=== PATIENT | female | born 1960 | race African-American/Black ===

== ENCOUNTER 2016-08-02 06:44 | Emergency (ER) | payer MEDICAID ==
[~2016-08-02] VITALS: Ht 170.2 cm; Wt 70.0 kg
[~2016-08-02 06:44] MED LIST: ALPR2TAB2 PO; AMLO5TAB2 PO; AMLO5TAB4 PO; ARTHRITIS MEDS; CARI350T PO; CIPR500T87; COLESTEROL MED; DIAZ5TAB4 PO; DICY20TA29 PO; FENO145T32 PO; FENT1PAT76 TP; HYDR-3240; HYDR50CA2 PO; LIPA1CAP54 PO; LORA1TAB PO; MAGN400T26 PO; METR500T PO; OMEP20CA9 PO; ONDA4TAB7; OXYC-223 PO; OXYC-302 PO; OXYC1TAB7 PO; PANT40TA5 PO; POLY17PO5 PO; PREG50CA PO; SENN1TAB7 PO; SIMV20TA3 PO; TRAZ100T15 PO
[2016-08-02] MEDS ORDERED: ACET-1600 PO (07:15)
[2016-08-02] MEDS ORDERED: BACL20TA PO (07:15)
[2016-08-02] MEDS ORDERED: GABA300C10 PO (07:15)
[2016-08-02] MEDS ORDERED: HYDROmorphone 1 MG/ML, 1ML ONE (07:29)
[2016-08-02] MEDS ORDERED: ONDANSETRON ODT 4 MG ONE (07:29)
[2016-08-02] MEDS ORDERED: HYDROmorphone 1 MG/ML, 1ML IM ONE (07:30)
[2016-08-02] MEDS ORDERED: ONDANSETRON ODT 4 MG PO ONE (07:30)
[2016-08-02 07:37] VITALS: BP 121/71
[2016-08-02] MEDS ORDERED: HYDROcodone/APAP 5/325 TABLET ONE (09:29)
[2016-08-02] MEDS ORDERED: HYDROcodone/APAP 5/325 TABLET PO ONE (09:30)
== END 2016-08-02 09:57 | disposition home or self-care (01) ==
LOC: ED 07:21
DX: S70.02XA Contusion of left hip, initial encounter (principal); G43.909 Migraine, unspecified, not intractable, without status migrainosus; M06.9 Rheumatoid arthritis, unspecified; Z98.51 Tubal ligation status; Z88.6 Allergy status to analgesic agent; W18.2XXA Fall in (into) shower or empty bathtub, initial encounter; Y93.89 Activity, other specified; Y92.89 Other specified places as the place of occurrence of the external cause; Y99.8 Other external cause status
CPT/HCPCS: 72110; 73502; 93005; 96372; 99284; J1170; Q0162

== ENCOUNTER 2016-10-11 21:41 | Emergency (ER) | payer OTHER, MEDICAID ==
[~2016-10-11] VITALS: Ht 170.2 cm; Wt 67.0 kg
[~2016-10-11 21:41] MED LIST changes: +ACET-1600 PO; +BACL20TA PO; +GABA300C10 PO
[2016-10-11] MEDS ORDERED: ONDANSETRON 2MG/ML, 2ML ONE (22:29)
[2016-10-11] MEDS ORDERED: MORPHINE SULFATE 4 MG/ML, 1ML ONE (22:29)
[2016-10-11] MEDS ORDERED: LEVETIRACETAM 1,000 MG in SODIUM CHLORIDE 0.9% 100 ML IV ONE (22:30)
[2016-10-11] MEDS ORDERED: ONDANSETRON 2MG/ML, 2ML IVPush ONE (22:30)
[2016-10-11] MEDS ORDERED: SODIUM CHLORIDE 0.9% 1,000ML IVBOLUS ONE (22:30)
[2016-10-11] MEDS: MORPHINE SULFATE 4 MG/ML, 1ML IVPush PRN (23:23)
[2016-10-11 23:30] LABS: ASPARTATE AMINO TRANSFERASE 22 U/L (15-37); BLOOD UREA NITROGEN 17 mg/dL (7-18)
[2016-10-11 23:35] LABS: IS PT STATUS REG ER OR PRE ER? YES
[2016-10-12] MEDS ORDERED: ZIPRASIDONE 20 MG INJ IM ONE ×2 (00:26→00:30)
[2016-10-12] MEDS ORDERED: MORPHINE SULFATE 4 MG/ML, 1ML ONE (00:38)
[2016-10-12] MEDS: MORPHINE SULFATE 4 MG/ML, 1ML IVPush PRN (00:41)
[2016-10-12 00:42] VITALS: BP 156/107
== END 2016-10-12 01:04 | disposition home or self-care (01) ==
LOC: ED 22:24
DX: S06.0X0A Concussion without loss of consciousness, initial encounter (principal); G40.909 Epilepsy, unspecified, not intractable, without status epilepticus; I10 Essential (primary) hypertension; M19.90 Unspecified osteoarthritis, unspecified site; M41.9 Scoliosis, unspecified; F17.200 Nicotine dependence, unspecified, uncomplicated; F19.10 Other psychoactive substance abuse, uncomplicated; Z88.6 Allergy status to analgesic agent; Z88.8 Allergy status to other drugs, medicaments and biological substances; W19.XXXA Unspecified fall, initial encounter; Y93.89 Activity, other specified; Y99.8 Other external cause status; Y92.149 Unspecified place in prison as the place of occurrence of the external cause; G43.909 Migraine, unspecified, not intractable, without status migrainosus
CPT/HCPCS: 36415; 70450; 71010; 80053; 84484; 85025; 93005; 96365; 96375; 96376; 99285; J1953; J2405; J7030

== ENCOUNTER 2016-11-28 13:02 | Emergency (ER) | payer MEDICAID, OTHER ==
[~2016-11-28] VITALS: Ht 170.2 cm; Wt 75.0 kg
[~2016-11-28 13:02] MED LIST changes: -OXYC-223 PO; +OXYC-306 PO
[2016-11-28] MEDS ORDERED: ONDANSETRON ODT 4 MG PO ONE (13:30)
[2016-11-28] MEDS ORDERED: PLEASE ENTER HEIGHT AND WEIGHT MC SCH (13:30)
[2016-11-28] MEDS ORDERED: HYDROmorphone 1 MG/ML, 1ML IM ONE (13:30)
[2016-11-28] MEDS ORDERED: ONDANSETRON ODT 4 MG ONE (13:35)
[2016-11-28] MEDS ORDERED: HYDROmorphone 2 MG/ML, 1ML ONE (13:35)
[2016-11-28] MEDS ORDERED: PROMETHAZINE 25 MG/ML, 1ML ONE (14:52)
[2016-11-28] MEDS ORDERED: PROMETHAZINE 25 MG/ML, 1ML IM ONE (15:00)
[2016-11-28 16:47] VITALS: BP 136/98
== END 2016-11-28 17:05 | disposition home or self-care (01) ==
LOC: ED 14:27
DX: R51 Headache (principal); G89.29 Other chronic pain; M06.9 Rheumatoid arthritis, unspecified; M79.1 Myalgia; K21.9 Gastro-esophageal reflux disease without esophagitis; M19.90 Unspecified osteoarthritis, unspecified site; F41.1 Generalized anxiety disorder; I10 Essential (primary) hypertension
CPT/HCPCS: 36415; 80047; 93005; 96372; 99285; J1170; J2550; Q0162

== ENCOUNTER 2016-11-29 12:53 | Emergency (ER) | payer MEDICAID ==
[~2016-11-29] VITALS: Ht 162.6 cm; Wt 60.0 kg
[2016-11-29 17:53] LABS: HEMOGLOBIN 11.3 g/dL (11.7-16.4); WHITE BLOOD COUNT 6.7 x10^3/uL (3.4-10)
[2016-11-29 18:02] LABS: BLOOD UREA NITROGEN 10 mg/dL (7-18)
[2016-11-29 18:03] LABS: ACETAMINOPHEN 4 mcg/mL (10-30)
[2016-11-29] MEDS ORDERED: LORazepam 2 MG/ML, 1ML ONE (18:15)
[2016-11-29] MEDS ORDERED: LORazepam 2 MG/ML, 1ML IM ONE (18:30)
[2016-11-29 21:17] VITALS: BP 116/85
== END 2016-11-29 21:23 | disposition home or self-care (01) ==
LOC: ED 13:27
DX: F41.1 Generalized anxiety disorder (principal); F10.129 Alcohol abuse with intoxication, unspecified; M79.7 Fibromyalgia; M41.9 Scoliosis, unspecified; M06.9 Rheumatoid arthritis, unspecified; Z88.6 Allergy status to analgesic agent; Z88.8 Allergy status to other drugs, medicaments and biological substances
CPT/HCPCS: 36415; 80048; 80307; 80329; 82040; 85025; 96372; 99284; J2060; G0479; G0480

== ENCOUNTER 2016-12-01 00:30 | Emergency (ER) | payer MEDICAID ==
[~2016-12-01] VITALS: Ht 165.1 cm; Wt 70.0 kg
[2016-12-01 00:38] VITALS: BP 149/53
[2016-12-01] MEDS ORDERED: DIPHENHYDRAMINE 50 MG CAPSULE ONE (00:56)
[2016-12-01] MEDS ORDERED: LORazepam 1MG TABLET ONE (00:56)
[2016-12-01] MEDS ORDERED: LORazepam 1MG TABLET PO ONE (01:00)
[2016-12-01] MEDS ORDERED: DIPHENHYDRAMINE 25 MG CAPSULE PO ONE (01:00)
== END 2016-12-01 01:43 | disposition home or self-care (01) ==
LOC: ED 01:12
DX: F41.9 Anxiety disorder, unspecified (principal); I10 Essential (primary) hypertension; Z90.5 Acquired absence of kidney; Z98.51 Tubal ligation status
CPT/HCPCS: 99284; Q0163

== ENCOUNTER 2016-12-09 14:29 | Inpatient (IN) | payer MEDICAID ==
[~2016-12-09] VITALS: Ht 170.2 cm; Wt 70.3 kg
[2016-12-09] MEDS ORDERED: SODIUM CHLORIDE 0.9% 1,000ML IVBOLUS ONE (15:00)
[2016-12-09 15:11] LABS: HEMATOCRIT 32.6 % (34.6-47.8); HEMOGLOBIN 10.6 g/dL (11.7-16.4); WHITE BLOOD COUNT 10.6 x10^3/uL (3.4-10)
[2016-12-09 15:25] LABS: BLOOD UREA NITROGEN 14 mg/dL (7-18)
[2016-12-09 15:31] LABS: ASPARTATE AMINO TRANSFERASE 28 U/L (15-37)
[2016-12-09] MEDS ORDERED: LORazepam 2 MG/ML, 1ML IVPush ONE (17:00)
[2016-12-09] MEDS ORDERED: LORazepam 2 MG/ML, 1ML ONE (17:01)
[2016-12-09 17:17] LABS: ACETAMINOPHEN < 2 mcg/mL (10-30)
[2016-12-09] MEDS ORDERED: DOCUSATE 100 MG CAPSULE PO PRN (17:30)
[2016-12-09] MEDS ORDERED: POLYETHYLENE GLYCOL 17 GM PACKET PO PRN (17:30)
[2016-12-09] MEDS ORDERED: ENALAPRILAT 1.25 MG/ML, 2ML IVPush PRN (17:30)
[2016-12-09] MEDS ORDERED: ONDANSETRON 2MG/ML, 2ML IVPush PRN (17:30)
[2016-12-09] MEDS: SODIUM CHLORIDE 0.9% 1,000 ML IV SCH (20:37)
[2016-12-09] MEDS: CEFTRIAXONE PMX 1GM/50ML 50 ML IV SCH ×2 (22:38→22:49)
[2016-12-09] MEDS: HEPARIN 5,000 UNITS/ML, 1ML SQ SCH (22:39)
[2016-12-09] MEDS: LORazepam 2 MG/ML, 1ML IVPush PRN (22:49)
[2016-12-09] MEDS: PLEASE ENTER WEIGHT MC SCH (22:49)
[2016-12-10] VITALS (7 sets, daily range): BP systolic 141–162; BP diastolic 97–128
[2016-12-10] MEDS: morphine SULFATE 10 MG/ML, 1ML IVPush PRN ×2 (00:33→03:12)
[2016-12-10] MEDS: hydrALAzine 20 MG/ML, 1ML IVPush PRN ×3 (01:56→13:33)
[2016-12-10] MEDS: PLEASE ENTER WEIGHT MC SCH (02:00)
[2016-12-10] MEDS: LORazepam 2 MG/ML, 1ML IVPush PRN ×5 (03:19→21:13)
[2016-12-10] MEDS: OXYcodone IR 5MG TABLET PO PRN ×4 (03:41→21:12)
[2016-12-10 05:30] LABS: HEMATOCRIT 35.5 % (34.6-47.8); HEMOGLOBIN 11.6 g/dL (11.7-16.4); WHITE BLOOD COUNT 10.7 x10^3/uL (3.4-10)
[2016-12-10 05:55] LABS: ASPARTATE AMINO TRANSFERASE 32 U/L (15-37); BLOOD UREA NITROGEN 12 mg/dL (7-18)
[2016-12-10] MEDS: SODIUM CHLORIDE 0.9% 1,000 ML IV SCH (07:46)
[2016-12-10] MEDS: SENNA/DOCUSATE TABLET PO SCH (07:47)
[2016-12-10] MEDS: GABAPENTIN 300 MG CAPSULE PO SCH (07:47)
[2016-12-10] MEDS: HEPARIN 5,000 UNITS/ML, 1ML SQ SCH ×2 (07:55→15:31)
[2016-12-10] MEDS: THIAMINE 100 MG, MVI ADULT 10 ML, FOLIC ACID 1 MG in D5%-0.9% NACL 1,000 ML IV SCH ×2 (11:35→23:19)
[2016-12-10] MEDS: LOSARTAN 50MG TABLET PO SCH (11:39)
[2016-12-10] MEDS: HALOPERIDOL 1 MG TABLET PO PRN (11:39)
[2016-12-10 12:00] LABS: DAU SCREEN DISCLAIMER
[2016-12-10 12:19] LABS: PATH.CAST-FLAG NOT PRESENT; SPERM-FLAG NOT PRESENT; SRC-FLAG NOT PRESENT; XTAL-FLAG NOT PRESENT; YLC-FLAG NOT PRESENT
[2016-12-10] MEDS: SIMVASTATIN 20 MG TABLET PO SCH (21:12)
[2016-12-10] MEDS: HALOPERIDOL 5 MG/ML IM PRN (21:15)
[2016-12-10] MEDS: CEFTRIAXONE PMX 1GM/50ML 50 ML IV SCH (23:23)
[2016-12-11] MEDS: HEPARIN 5,000 UNITS/ML, 1ML SQ SCH ×3 (01:00→16:49)
[2016-12-11 02:49] VITALS: BP 127/86
[2016-12-11] MEDS: OXYcodone IR 5MG TABLET PO PRN ×5 (04:42→22:01)
[2016-12-11] MEDS: LORazepam 2 MG/ML, 1ML IVPush PRN ×3 (04:43→14:50)
[2016-12-11] MEDS: HALOPERIDOL 5 MG/ML IM PRN ×2 (04:43→10:58)
[2016-12-11 05:10] LABS: BLOOD UREA NITROGEN 6 mg/dL (7-18)
[2016-12-11 06:40] VITALS: BP 128/87
[2016-12-11] MEDS: GABAPENTIN 300 MG CAPSULE PO SCH (09:55)
[2016-12-11] MEDS: SENNA/DOCUSATE TABLET PO SCH (09:55)
[2016-12-11] MEDS: LOSARTAN 50MG TABLET PO SCH (09:55)
[2016-12-11] MEDS ORDERED: LORazepam 2 MG/ML, 1ML IV PRN ×2 (12:00)
[2016-12-11] MEDS ORDERED: LORazepam 1MG TABLET PO PRN ×2 (12:00)
[2016-12-11] MEDS ORDERED: LORazepam 0.5MG TABLET PO PRN (12:00)
[2016-12-11] MEDS: MULTIVITAMIN 1 TABLET PO SCH (13:18)
[2016-12-11] MEDS: CHLORDIAZEPOXIDE 10 MG CAPSULE PO SCH ×3 (13:18→20:46)
[2016-12-11] MEDS: THIAMINE 100MG TABLET PO SCH (13:18)
[2016-12-11] MEDS: FOLIC ACID 1 MG TABLET PO SCH (13:18)
[2016-12-11] MEDS: OMEPRAZOLE 20 MG CAPSULE.DR PO SCH ×2 (13:18→20:46)
[2016-12-11 14:39] VITALS: BP 119/81
[2016-12-11] MEDS: LORazepam 2 MG/ML, 1ML IV PRN ×2 (18:28→22:19)
[2016-12-11 18:52] VITALS: BP 124/85
[2016-12-11] MEDS: SIMVASTATIN 20 MG TABLET PO SCH (20:46)
[2016-12-11] MEDS: CEFTRIAXONE PMX 1GM/50ML 50 ML IV SCH (23:16)
[2016-12-12] MEDS: HEPARIN 5,000 UNITS/ML, 1ML SQ SCH ×3 (01:29→15:38)
[2016-12-12 01:52] VITALS: BP 122/85
[2016-12-12] MEDS: LORazepam 2 MG/ML, 1ML IV PRN ×8 (02:29→22:21)
[2016-12-12] MEDS: HALOPERIDOL 5 MG/ML IM PRN ×4 (02:53→22:22)
[2016-12-12 05:18] LABS: HEMATOCRIT 31.5 % (34.6-47.8); HEMOGLOBIN 10.5 g/dL (11.7-16.4); WHITE BLOOD COUNT 6.8 x10^3/uL (3.4-10)
[2016-12-12 05:23] LABS: BLOOD UREA NITROGEN 8 mg/dL (7-18)
[2016-12-12 07:53] VITALS: BP 142/97
[2016-12-12] MEDS: LOSARTAN 50MG TABLET PO SCH (07:56)
[2016-12-12] MEDS: CHLORDIAZEPOXIDE 10 MG CAPSULE PO SCH ×3 (07:57→21:02)
[2016-12-12] MEDS: SENNA/DOCUSATE TABLET PO SCH (07:57)
[2016-12-12] MEDS: THIAMINE 100MG TABLET PO SCH (07:57)
[2016-12-12] MEDS: MULTIVITAMIN 1 TABLET PO SCH (07:57)
[2016-12-12] MEDS: OMEPRAZOLE 20 MG CAPSULE.DR PO SCH ×2 (07:57→21:02)
[2016-12-12] MEDS: GABAPENTIN 300 MG CAPSULE PO SCH (07:57)
[2016-12-12] MEDS: OXYcodone IR 5MG TABLET PO PRN ×3 (07:57→19:43)
[2016-12-12] MEDS: FOLIC ACID 1 MG TABLET PO SCH (07:59)
[2016-12-12 14:22] VITALS: BP 124/85
[2016-12-12] MEDS: NICOTINE 14MG/24 HR PATCH.TD24 TD SCH (15:35)
[2016-12-12 19:28] VITALS: BP 117/92
[2016-12-12] MEDS: SIMVASTATIN 20 MG TABLET PO SCH (21:02)
[2016-12-12] MEDS: CEFTRIAXONE PMX 1GM/50ML 50 ML IV SCH (23:37)
[2016-12-13] MEDS: HEPARIN 5,000 UNITS/ML, 1ML SQ SCH ×3 (02:27→16:54)
[2016-12-13 02:29] VITALS: BP 126/85
[2016-12-13] MEDS: OXYcodone IR 5MG TABLET PO PRN ×5 (02:34→21:15)
[2016-12-13 07:15] VITALS: BP 107/73
[2016-12-13] MEDS: LOSARTAN 50MG TABLET PO SCH (07:59)
[2016-12-13] MEDS: SENNA/DOCUSATE TABLET PO SCH (07:59)
[2016-12-13] MEDS: FOLIC ACID 1 MG TABLET PO SCH (07:59)
[2016-12-13] MEDS: THIAMINE 100MG TABLET PO SCH (07:59)
[2016-12-13] MEDS: GABAPENTIN 300 MG CAPSULE PO SCH (08:00)
[2016-12-13] MEDS: MULTIVITAMIN 1 TABLET PO SCH (08:00)
[2016-12-13] MEDS: CHLORDIAZEPOXIDE 10 MG CAPSULE PO SCH ×2 (08:00→14:54)
[2016-12-13] MEDS: OMEPRAZOLE 20 MG CAPSULE.DR PO SCH ×2 (08:00→20:05)
[2016-12-13] MEDS: LORazepam 1MG TABLET PO PRN ×3 (08:31→14:54)
[2016-12-13] MEDS: HALOPERIDOL 1 MG TABLET PO PRN ×2 (13:43→22:50)
[2016-12-13 14:05] VITALS: BP 114/74
[2016-12-13] MEDS: NICOTINE 14MG/24 HR PATCH.TD24 TD SCH (14:49)
[2016-12-13 18:34] VITALS: BP 106/75
[2016-12-13] MEDS: SIMVASTATIN 20 MG TABLET PO SCH (20:05)
[2016-12-14 00:08] VITALS: BP 119/80
[2016-12-14] MEDS: HEPARIN 5,000 UNITS/ML, 1ML SQ SCH ×3 (01:00→14:35)
[2016-12-14] MEDS: OXYcodone IR 5MG TABLET PO PRN ×3 (06:14→15:12)
[2016-12-14] MEDS: LORazepam 1MG TABLET PO PRN (06:19)
[2016-12-14] MEDS: HALOPERIDOL 1 MG TABLET PO PRN ×2 (08:44→17:17)
[2016-12-14] MEDS: SENNA/DOCUSATE TABLET PO SCH (08:44)
[2016-12-14] MEDS: GABAPENTIN 300 MG CAPSULE PO SCH (08:44)
[2016-12-14] MEDS: MULTIVITAMIN 1 TABLET PO SCH (08:44)
[2016-12-14] MEDS: LOSARTAN 50MG TABLET PO SCH (08:44)
[2016-12-14] MEDS: THIAMINE 100MG TABLET PO SCH (08:44)
[2016-12-14] MEDS: FOLIC ACID 1 MG TABLET PO SCH (08:44)
[2016-12-14 08:52] VITALS: BP 109/76
[2016-12-14] MEDS ORDERED: CHLORDIAZEPOXIDE 10 MG CAPSULE PO ONE (09:00)
[2016-12-14] MEDS: OMEPRAZOLE 20 MG CAPSULE.DR PO SCH (09:00)
[2016-12-14 11:51] VITALS: BP 108/75
[2016-12-14 13:35] VITALS: BP 115/91
[2016-12-14] MEDS: NICOTINE 14MG/24 HR PATCH.TD24 TD SCH (15:00)
[2016-12-14] MEDS ORDERED: MULT1TAB60 PO (15:57)
[2016-12-14] MEDS ORDERED: SIMV20TA3 PO (15:57)
[2016-12-14] MEDS ORDERED: LOSA50TA2 PO (15:57)
[2016-12-14] MEDS ORDERED: FOLI-17 PO (15:57)
[2016-12-14] MEDS ORDERED: OMEP-110 PO (15:57)
[2016-12-14] MEDS ORDERED: THIA100T6 PO (15:57)
== END 2016-12-14 17:20 | disposition home or self-care (01) | DRG 896 ==
LOC: ED 14:55 → EDIP 17:20 → 4NOR 20:28
PROVIDERS: ADMIT Internal Medicine; ATTEND Internal Medicine
DX: F10.239 Alcohol dependence with withdrawal, unspecified (principal); N17.0 Acute kidney failure with tubular necrosis; G93.41 Metabolic encephalopathy; E87.2 Acidosis; M41.9 Scoliosis, unspecified; K29.20 Alcoholic gastritis without bleeding; D64.9 Anemia, unspecified; E78.5 Hyperlipidemia, unspecified; E86.0 Dehydration; F41.9 Anxiety disorder, unspecified; G89.29 Other chronic pain; I10 Essential (primary) hypertension; K57.30 Diverticulosis of large intestine without perforation or abscess without bleeding; M06.9 Rheumatoid arthritis, unspecified; M79.7 Fibromyalgia; N32.89 Other specified disorders of bladder; Z90.5 Acquired absence of kidney; Z91.14 Patient's other noncompliance with medication regimen; Z91.19 Patient's noncompliance with other medical treatment and regimen
CPT/HCPCS: 36415; 74176; 80048; 80053; 80061; 80307; 80329; 81001; 82140; 83036; 83690; 83735; 84439; 84443; 84703; 85025; 87040; 87086; 93005; 96361; 96374; J0696; J1644; J3411; J7042; G0479; G0480; J0360; J1630; J2060; J2270; J7030

== ENCOUNTER 2016-12-17 02:10 | Emergency (ER) | payer MEDICAID ==
[~2016-12-17] VITALS: Ht 167.6 cm; Wt 72.0 kg
[~2016-12-17 02:10] MED LIST changes: +FOLI-17 PO; +LOSA50TA2 PO; +MULT1TAB60 PO; +OMEP-110 PO; +THIA100T6 PO
[2016-12-17 03:01] LABS: ASPARTATE AMINO TRANSFERASE 43 U/L (15-37); BLOOD UREA NITROGEN 16 mg/dL (7-18)
[2016-12-17 03:06] LABS: HEMATOCRIT 39.9 % (34.6-47.8); HEMOGLOBIN 13.1 g/dL (11.7-16.4); WHITE BLOOD COUNT 5.7 x10^3/uL (3.4-10)
[2016-12-17] MEDS ORDERED: ACETAMINOPHEN 325 MG TABLET ONE (04:16)
[2016-12-17] MEDS ORDERED: ONDANSETRON ODT 4 MG ONE (04:16)
[2016-12-17 04:59] VITALS: BP 164/77
== END 2016-12-17 05:02 | disposition home or self-care (01) ==
LOC: ED 02:36
DX: R10.84 Generalized abdominal pain (principal); F10.129 Alcohol abuse with intoxication, unspecified; F17.210 Nicotine dependence, cigarettes, uncomplicated; I10 Essential (primary) hypertension; G43.909 Migraine, unspecified, not intractable, without status migrainosus; I70.0 Atherosclerosis of aorta; M79.7 Fibromyalgia
CPT/HCPCS: 36415; 71010; 80053; 80307; 82140; 83690; 85025; 85610; 99285; G0479

== ENCOUNTER 2017-01-07 17:47 | Emergency (ER) | payer MEDICAID ==
[~2017-01-07] VITALS: Ht 167.6 cm; Wt 71.6 kg
[2017-01-07 18:08] VITALS: BP 133/95
[2017-01-07] MEDS ORDERED: FENTANYL PF 100 MCG/2ML IV ONE (19:00)
[2017-01-07] MEDS ORDERED: FENTANYL PF 100 MCG/2ML ONE (19:48)
[2017-01-07] MEDS ORDERED: LORazepam 2 MG/ML, 1ML ONE (20:19)
[2017-01-07] MEDS ORDERED: LORazepam 2 MG/ML, 1ML IVPush ONE (20:30)
== END 2017-01-07 21:24 | disposition left against medical advice (07) ==
LOC: ED 18:32
DX: S33.5XXA Sprain of ligaments of lumbar spine, initial encounter (principal); S00.93XA Contusion of unspecified part of head, initial encounter; I10 Essential (primary) hypertension; M06.9 Rheumatoid arthritis, unspecified; Y04.2XXA Assault by strike against or bumped into by another person, initial encounter
CPT/HCPCS: 96374; 99284; J3010

== ENCOUNTER 2018-03-25 20:44 | Emergency (ER) | payer MEDICAID ==
[~2018-03-25] VITALS: Ht 170.2 cm; Wt 90.0 kg
[~2018-03-25 20:44] MED LIST changes: +AMLO-150 PO; -AMLO5TAB2 PO; -SENN1TAB7 PO; +SENN1TAB8 PO; -THIA100T6 PO; +THIA100T67 PO; +TRAZ-137 PO; -TRAZ100T15 PO
[2018-03-25] MEDS ORDERED: METOCLOPRAMIDE 5 MG/ML, 2ML IVPush ONE (21:00)
[2018-03-25] MEDS ORDERED: DIPHENHYDRAMINE 50 MG/ML, 1ML IVPush ONE (21:00)
[2018-03-25] MEDS ORDERED: SODIUM CHLORIDE FLUSH 10ML SYR IVF ONE (21:00)
--- NOTE | 2018-03-25 22:08 | NUR ---
MULTIPLE IV ATTEMPTS HAVE FAILED. PT VITALS REMAIN STABLE. ANOTHER RN ATTEMPTING IV PLACEMENT AT THIS TIME. SO FAR 4 ATTEMPTS HAVE FAILED. PT REFUSED BENADRYL. STATED SHE TAKES 4 BENADRYL A DAY, SO IT WILL NOT HELP HER. ERP AWARE. WHEN IV ESTABLISHED, WILL MEDICATE WITH REMAINING MEDS.
--- NOTE | 2018-03-25 22:26 | NUR ---
GLORIA RN: MEDICATED PATIENT. NO ACUTE DISTRESS NOTED. VS STABLE. CALL LIGHT IN PLACE.
--- NOTE | 2018-03-25 22:51 | NUR ---
PT REQUESTING DILAUDID FOR HER MARIO, BACK PAIN AND MOUTH NUMBNESS. PT TOLD ANOTHER RN, "I'M NOT LEAVING HERE WITHOUT GETTING DILAUDID". PT HAS REFUSED ALL OTHER OFFERED MEDS. PT STATES SEVERE ADVERSE REACTION TO ALL OTHER MEDS OFFERED FOR HER PAIN BY ERP. PT UPSET WITH THIS RN, STATING, "I CAN'T BELIEVE YOU TREAT BLACK PEOPLE LIKE THIS". PT RESTING IN [facility] AT THIS TIME. WILL CONTINUE TO MONITOR.
[2018-03-25 23:41] VITALS: BP 116/84
--- NOTE | 2018-03-25 23:49 | NUR ---
PT EXTREMLY DROWSY AT THIS TIME. PT VSS. WILL CONTINUE TO MONITOR. RESTING IN GURNEY, BILAT BEDRAILS UP.
== END 2018-03-26 00:09 | disposition home or self-care (01) ==
LOC: ED 22:20
DX: G43.009 Migraine without aura, not intractable, without status migrainosus (principal)
CPT/HCPCS: 96374; 96375; 99283; J1200; J2765

== ENCOUNTER 2018-11-09 12:44 | Inpatient (IN) | payer MEDICAID ==
[~2018-11-09] VITALS: Ht 170.2 cm; Wt 77.4 kg
[~2018-11-09 12:44] MED LIST changes: +SENN-177 PO; -SENN1TAB8 PO
[2018-11-09] MEDS ORDERED: BISACODYL 10 MG SUPP PR PRN (13:00)
[2018-11-09] MEDS ORDERED: DOCUSATE 100 MG CAPSULE PO PRN (13:00)
[2018-11-09] MEDS ORDERED: POLYETHYLENE GLYCOL 17 GM PACKET PO PRN (13:00)
[2018-11-09] MEDS ORDERED: ONDANSETRON ODT 4 MG PO PRN (13:00)
[2018-11-09] MEDS ORDERED: PLEASE ENTER HEIGHT AND WEIGHT MC SCH (16:00)
[2018-11-09 17:16] VITALS: BP 110/76
[2018-11-09] MEDS ORDERED: NICOTINE 14MG/24 HR PATCH.TD24 ONE (17:47)
[2018-11-09] MEDS: NICOTINE 14MG/24 HR PATCH.TD24 TD SCH (17:54)
[2018-11-09 18:42] LABS: BASOPHILS # (AUTO) 0.06 x10^3/uL (0-0.1); BASOPHILS % (AUTO) 1 % (0-1); EOSINOPHILS # (AUTO) 0.09 x10^3/uL (0-0.4); EOSINOPHILS % (AUTO) 1 % (1-7); LYMPHOCYTES # (AUTO) 2.62 x10^3/uL (1-3.4); LYMPHOCYTES % (AUTO) 42 % (22-44); MD NO; MEAN CORPUSCULAR HEMOGLOBIN 30.5 pg (27.0-34.8); MEAN CORPUSCULAR HGB CONC 33.4 g/dL (32.4-35.8); MEAN CORPUSCULAR VOLUME 91.3 fL (80-100); MEAN PLATELET VOLUME 9.1 fL (7.4-10.4); MONOCYTES # (AUTO) 0.12 x10^3/uL (0.2-0.8); MONOCYTES % (AUTO) 2 % (2-9); NEUTROPHILS # (AUTO) 3.42 x10^3/uL (1.8-6.8); NEUTROPHILS % (AUTO) 54 % (42-75); PLATELET COUNT 273 x10^3/uL (130-400); RED BLOOD COUNT 4.27 x10^6/uL (3.82-5.3); RED CELL DISTRIBUTION WIDTH 15.9 % (9.6-15.2)
[2018-11-09 18:50] LABS: ALBUMIN 3.7 g/dL (3.4-5.0); ANION GAP 9 mmol/L (5-15); CALCIUM 8.8 mg/dL (8.5-10.1); CHLORIDE 112 mmol/L (98-107)
[2018-11-09 19:15] LABS: ALANINE AMINOTRANSFERASE 47 U/L (12-78); ALKALINE PHOSPHATASE 116 U/L (45-117); BILIRUBIN,TOTAL 0.5 mg/dL (0.2-1.0); CHOL/HDL RATIO 5.4; CHOLESTEROL, TOTAL 209 mg/dL (140-239); FREE T4 (FREE THYROXINE) 0.87 ng/dL (0.76-1.46); HDL CHOL % 19 % (28-40); HDL CHOLESTEROL (DIRECT) 39 mg/dL (40-60); TOTAL PROTEIN 7.6 g/dL (6.4-8.2); TRIGLYCERIDES 477 mg/dL (50-200)
[2018-11-09 20:00] VITALS: BP 113/80
[2018-11-09] MEDS: OMEPRAZOLE 20 MG CAPSULE.DR PO SCH (20:13)
[2018-11-09] MEDS: ACETAMINOPHEN 325 MG TABLET PO PRN (20:14)
[2018-11-09] MEDS: SIMVASTATIN 20 MG TABLET PO SCH (20:14)
[2018-11-09] MEDS: ZOLPIDEM 5MG TABLET PO PRN (20:14)
[2018-11-09 21:01] LABS: MICROSCOPIC AUTO
[2018-11-09 21:09] LABS: AMPHETAMINE SCREEN, URINE Negative (Negative); BARBITURATE SCREEN, URINE Negative (Negative); BENZODIAZEPINE SCREEN, URINE Positive (Negative); CANNABINOID SCREEN, URINE Negative (Negative); COCAINE SCREEN, URINE Negative (Negative); CULTURE INDICATED? NO; METHADONE SCREEN, URINE Negative (Negative); OPIATE SCREEN, URINE Negative (Negative)
[2018-11-10] MEDS: ACETAMINOPHEN 325 MG TABLET PO PRN (05:49)
[2018-11-10] MEDS: DIPHENHYDRAMINE 25 MG CAPSULE PO PRN ×2 (06:33→17:06)
[2018-11-10 07:42] VITALS: BP 123/85
[2018-11-10] MEDS: GABAPENTIN 300 MG CAPSULE PO SCH (08:19)
[2018-11-10] MEDS: OMEPRAZOLE 20 MG CAPSULE.DR PO SCH ×2 (08:19→20:07)
[2018-11-10] MEDS: FOLIC ACID 1 MG TABLET PO SCH (08:20)
[2018-11-10] MEDS: LOSARTAN 50MG TABLET PO SCH (08:20)
[2018-11-10] MEDS: THIAMINE 100MG TABLET PO SCH (08:20)
[2018-11-10] MEDS ORDERED: BACLOFEN 10 MG TABLET PO SCH (09:00)
[2018-11-10] MEDS ORDERED: HALOPERIDOL 5 MG TABLET ONE (09:51)
[2018-11-10] MEDS: HALOPERIDOL 5 MG TABLET PO PRN ×2 (09:54→17:06)
[2018-11-10] MEDS: PREGABALIN 75 MG CAPSULE PO PRN (14:54)
[2018-11-10] MEDS: NICOTINE 14MG/24 HR PATCH.TD24 TD SCH (17:07)
[2018-11-10 19:47] VITALS: BP 132/96
[2018-11-10] MEDS: SIMVASTATIN 20 MG TABLET PO SCH (20:07)
[2018-11-10] MEDS: ZOLPIDEM 5MG TABLET PO PRN (20:08)
[2018-11-11] MEDS: HALOPERIDOL 5 MG TABLET PO PRN ×3 (01:37→16:20)
[2018-11-11] MEDS: DIPHENHYDRAMINE 25 MG CAPSULE PO PRN (01:41)
[2018-11-11] MEDS: ACETAMINOPHEN 325 MG TABLET PO PRN ×3 (01:41→16:19)
[2018-11-11 08:21] VITALS: BP 114/83
[2018-11-11] MEDS: LOSARTAN 50MG TABLET PO SCH (09:12)
[2018-11-11] MEDS: THIAMINE 100MG TABLET PO SCH (09:12)
[2018-11-11] MEDS: GABAPENTIN 300 MG CAPSULE PO SCH (09:12)
[2018-11-11] MEDS: OMEPRAZOLE 20 MG CAPSULE.DR PO SCH ×2 (09:12→22:42)
[2018-11-11] MEDS: FOLIC ACID 1 MG TABLET PO SCH (09:12)
[2018-11-11] MEDS: PREGABALIN 75 MG CAPSULE PO PRN ×2 (10:25→22:42)
[2018-11-11] MEDS: QUETIAPINE 100MG TABLET PO SCH ×3 (16:20→22:42)
[2018-11-11] MEDS: NICOTINE 14MG/24 HR PATCH.TD24 TD SCH (18:53)
[2018-11-11] MEDS: ZOLPIDEM 5MG TABLET PO PRN (22:42)
[2018-11-11] MEDS: SIMVASTATIN 20 MG TABLET PO SCH (22:43)
[2018-11-12] MEDS: HALOPERIDOL 5 MG TABLET PO PRN ×3 (01:17→15:36)
[2018-11-12 07:55] VITALS: BP 110/85
[2018-11-12] MEDS: PREGABALIN 75 MG CAPSULE PO PRN (08:24)
[2018-11-12] MEDS: QUETIAPINE 100MG TABLET PO SCH ×3 (08:25→20:38)
[2018-11-12] MEDS: LOSARTAN 50MG TABLET PO SCH (08:25)
[2018-11-12] MEDS: FOLIC ACID 1 MG TABLET PO SCH (08:25)
[2018-11-12] MEDS: OMEPRAZOLE 20 MG CAPSULE.DR PO SCH ×2 (08:25→20:38)
[2018-11-12] MEDS: ACETAMINOPHEN 325 MG TABLET PO PRN ×3 (08:25→20:37)
[2018-11-12] MEDS: GABAPENTIN 300 MG CAPSULE PO SCH (08:25)
[2018-11-12] MEDS: THIAMINE 100MG TABLET PO SCH (08:25)
[2018-11-12] MEDS: NICOTINE 14MG/24 HR PATCH.TD24 TD SCH (17:25)
[2018-11-12] MEDS: DIPHENHYDRAMINE 50 MG CAPSULE PO PRN (17:25)
[2018-11-12] MEDS: MELOXICAM 15 MG TABLET PO PRN (17:25)
[2018-11-12 19:30] VITALS: BP 87/64
[2018-11-12] MEDS: ZOLPIDEM 5MG TABLET PO PRN (20:37)
[2018-11-12] MEDS: SIMVASTATIN 20 MG TABLET PO SCH (20:38)
[2018-11-13] MEDS: PREGABALIN 75 MG CAPSULE PO PRN ×2 (04:46→12:19)
[2018-11-13] MEDS: ACETAMINOPHEN 325 MG TABLET PO PRN (04:46)
[2018-11-13] MEDS: HALOPERIDOL 5 MG TABLET PO PRN ×3 (04:46→20:08)
[2018-11-13 07:34] VITALS: BP 112/83
[2018-11-13] MEDS: OMEPRAZOLE 20 MG CAPSULE.DR PO SCH ×2 (08:56→20:08)
[2018-11-13] MEDS: THIAMINE 100MG TABLET PO SCH (08:56)
[2018-11-13] MEDS: DIPHENHYDRAMINE 50 MG CAPSULE PO PRN (08:56)
[2018-11-13] MEDS: QUETIAPINE 100MG TABLET PO SCH ×3 (08:56→20:08)
[2018-11-13] MEDS: LOSARTAN 50MG TABLET PO SCH (08:56)
[2018-11-13] MEDS: GABAPENTIN 300 MG CAPSULE PO SCH (08:56)
[2018-11-13] MEDS: FOLIC ACID 1 MG TABLET PO SCH (08:56)
[2018-11-13] MEDS: MELOXICAM 15 MG TABLET PO PRN (12:19)
[2018-11-13] MEDS ORDERED: METHOCARBAMOL 750 MG TABLET ONE (17:01)
[2018-11-13] MEDS: METHOCARBAMOL 750 MG TABLET PO SCH ×2 (17:26→20:08)
[2018-11-13] MEDS: NICOTINE 14MG/24 HR PATCH.TD24 TD SCH (17:28)
[2018-11-13 19:40] VITALS: BP 118/83
[2018-11-13] MEDS: ZOLPIDEM 5MG TABLET PO PRN (20:08)
[2018-11-13] MEDS: SIMVASTATIN 20 MG TABLET PO SCH (20:08)
[2018-11-14] MEDS: HALOPERIDOL 5 MG TABLET PO PRN ×3 (02:06→15:33)
[2018-11-14] MEDS: PREGABALIN 75 MG CAPSULE PO PRN ×3 (02:19→15:33)
[2018-11-14] MEDS: ACETAMINOPHEN 325 MG TABLET PO PRN ×3 (02:19→15:33)
[2018-11-14] MEDS: DIPHENHYDRAMINE 50 MG CAPSULE PO PRN ×2 (02:19→18:00)
[2018-11-14 07:24] VITALS: BP 85/55
[2018-11-14 08:50] VITALS: BP 108/72
[2018-11-14] MEDS: LOSARTAN 50MG TABLET PO SCH (08:51)
[2018-11-14] MEDS: THIAMINE 100MG TABLET PO SCH (08:51)
[2018-11-14] MEDS: OMEPRAZOLE 20 MG CAPSULE.DR PO SCH ×2 (08:51→20:06)
[2018-11-14] MEDS: FOLIC ACID 1 MG TABLET PO SCH (08:51)
[2018-11-14] MEDS: GABAPENTIN 300 MG CAPSULE PO SCH (08:51)
[2018-11-14] MEDS: METHOCARBAMOL 750 MG TABLET PO SCH ×3 (08:52→20:06)
[2018-11-14] MEDS: QUETIAPINE 100MG TABLET PO SCH ×3 (08:52→20:06)
[2018-11-14] MEDS: NICOTINE 14MG/24 HR PATCH.TD24 TD SCH (18:00)
[2018-11-14 19:46] VITALS: BP 112/80
[2018-11-14] MEDS: SIMVASTATIN 20 MG TABLET PO SCH (20:07)
[2018-11-14] MEDS: ZOLPIDEM 5MG TABLET PO PRN (20:13)
[2018-11-15] MEDS: HALOPERIDOL 5 MG TABLET PO PRN (06:06)
[2018-11-15] MEDS: PREGABALIN 75 MG CAPSULE PO PRN ×2 (06:06→18:19)
[2018-11-15 07:20] VITALS: BP 107/79
[2018-11-15] MEDS: METHOCARBAMOL 750 MG TABLET PO SCH ×3 (09:09→20:12)
[2018-11-15] MEDS: FOLIC ACID 1 MG TABLET PO SCH (09:09)
[2018-11-15] MEDS: OMEPRAZOLE 20 MG CAPSULE.DR PO SCH ×2 (09:09→20:12)
[2018-11-15] MEDS: GABAPENTIN 300 MG CAPSULE PO SCH (09:09)
[2018-11-15] MEDS: LOSARTAN 50MG TABLET PO SCH (09:09)
[2018-11-15] MEDS: THIAMINE 100MG TABLET PO SCH (09:10)
[2018-11-15] MEDS: QUETIAPINE 100MG TABLET PO SCH ×2 (09:10→20:13)
[2018-11-15] MEDS: MELOXICAM 15 MG TABLET PO PRN ×2 (12:18→18:20)
[2018-11-15] MEDS: ACETAMINOPHEN 325 MG TABLET PO PRN (12:18)
[2018-11-15] MEDS ORDERED: ALUMINUM/MAG/SIMETHICONE 30 ML UDC PO ONE (16:30)
[2018-11-15] MEDS: NICOTINE 14MG/24 HR PATCH.TD24 TD SCH (18:10)
[2018-11-15] MEDS: DIPHENHYDRAMINE 50 MG CAPSULE PO PRN (18:23)
[2018-11-15 19:30] VITALS: BP 135/84
[2018-11-15] MEDS: ZOLPIDEM 5MG TABLET PO PRN (20:12)
[2018-11-15] MEDS: SIMVASTATIN 20 MG TABLET PO SCH (20:13)
[2018-11-16] MEDS: ACETAMINOPHEN 325 MG TABLET PO PRN ×3 (06:22→18:15)
[2018-11-16] MEDS: PREGABALIN 75 MG CAPSULE PO PRN ×3 (06:22→20:08)
[2018-11-16] MEDS: HALOPERIDOL 5 MG TABLET PO PRN ×3 (06:22→21:56)
[2018-11-16] MEDS: DIPHENHYDRAMINE 50 MG CAPSULE PO PRN ×2 (06:27→18:15)
[2018-11-16 07:30] VITALS: BP 109/78
[2018-11-16] MEDS: FOLIC ACID 1 MG TABLET PO SCH (09:38)
[2018-11-16] MEDS: GABAPENTIN 300 MG CAPSULE PO SCH (09:38)
[2018-11-16] MEDS: LOSARTAN 50MG TABLET PO SCH (09:38)
[2018-11-16] MEDS: THIAMINE 100MG TABLET PO SCH (09:38)
[2018-11-16] MEDS: OMEPRAZOLE 20 MG CAPSULE.DR PO SCH ×2 (09:38→20:08)
[2018-11-16] MEDS: ARIPIPRAZOLE 5 MG TABLET PO SCH (09:38)
[2018-11-16] MEDS: METHOCARBAMOL 750 MG TABLET PO SCH ×3 (09:38→20:08)
[2018-11-16] MEDS ORDERED: LOSA50TA2 PO (10:26)
[2018-11-16] MEDS ORDERED: GABA300C10 PO (10:26)
[2018-11-16] MEDS ORDERED: QUET100T PO (10:26)
[2018-11-16] MEDS ORDERED: SIMV20TA3 PO (10:26)
[2018-11-16] MEDS ORDERED: NICO-486 TD (10:26)
[2018-11-16] MEDS ORDERED: FOLI-17 PO (10:26)
[2018-11-16] MEDS ORDERED: ARIP5TAB13 PO (10:26)
[2018-11-16] MEDS ORDERED: DIPH50CA PO (10:26)
[2018-11-16] MEDS: MELOXICAM 15 MG TABLET PO PRN (12:47)
[2018-11-16] MEDS: NICOTINE 14MG/24 HR PATCH.TD24 TD SCH (18:15)
[2018-11-16 19:31] VITALS: BP 122/88
[2018-11-16] MEDS: ZOLPIDEM 5MG TABLET PO PRN (20:08)
[2018-11-16] MEDS: SIMVASTATIN 20 MG TABLET PO SCH (20:08)
[2018-11-16] MEDS: QUETIAPINE 100MG TABLET PO SCH (20:08)
[2018-11-17] MEDS: DIPHENHYDRAMINE 50 MG CAPSULE PO PRN (05:58)
[2018-11-17] MEDS: MELOXICAM 15 MG TABLET PO PRN (05:58)
[2018-11-17] MEDS: HALOPERIDOL 5 MG TABLET PO PRN ×2 (05:58→13:00)
[2018-11-17] MEDS: PREGABALIN 75 MG CAPSULE PO PRN (07:37)
[2018-11-17 07:46] VITALS: BP 97/68
[2018-11-17] MEDS: ARIPIPRAZOLE 5 MG TABLET PO SCH (08:43)
[2018-11-17] MEDS: LOSARTAN 50MG TABLET PO SCH (08:44)
[2018-11-17] MEDS: FOLIC ACID 1 MG TABLET PO SCH (08:44)
[2018-11-17] MEDS: GABAPENTIN 300 MG CAPSULE PO SCH (08:44)
[2018-11-17] MEDS: OMEPRAZOLE 20 MG CAPSULE.DR PO SCH (08:45)
[2018-11-17] MEDS: ACETAMINOPHEN 325 MG TABLET PO PRN (08:45)
[2018-11-17] MEDS: METHOCARBAMOL 750 MG TABLET PO SCH (08:45)
[2018-11-17] MEDS: THIAMINE 100MG TABLET PO SCH (08:45)
[2018-12-19] MEDS ORDERED: ZOLP-413 PO (20:13)
[2018-12-24] MEDS ORDERED: GABA300C10 PO (17:05)
[2018-12-24] MEDS ORDERED: TOPI25TA32 PO (17:05)
[2018-12-24] MEDS ORDERED: NICO-486 TD (17:05)
[2018-12-24] MEDS ORDERED: QUET200T PO (17:05)
[2018-12-24] MEDS ORDERED: SIMV20TA3 PO (17:05)
[2018-12-24] MEDS ORDERED: OMEP10CA5 PO (17:05)
[2018-12-24] MEDS ORDERED: ARIP5TAB13 PO (17:05)
[2018-12-24] MEDS ORDERED: MULT1TAB60 PO (17:05)
== END 2018-11-17 14:57 | disposition home or self-care (01) | DRG 750 ==
LOC: 3E 15:45
PROVIDERS: ADMIT Psychiatry & Neurology Psychosomatic Medicine; ATTEND Psychiatry & Neurology Psychosomatic Medicine
DX: F20.0 Paranoid schizophrenia (principal); F33.1 Major depressive disorder, recurrent, moderate; E78.5 Hyperlipidemia, unspecified; F17.200 Nicotine dependence, unspecified, uncomplicated; G89.29 Other chronic pain; I10 Essential (primary) hypertension; K21.9 Gastro-esophageal reflux disease without esophagitis; Z88.6 Allergy status to analgesic agent; Z79.899 Other long term (current) drug therapy; Z88.0 Allergy status to penicillin; Z82.0 Family history of epilepsy and other diseases of the nervous system; Z88.8 Allergy status to other drugs, medicaments and biological substances; Z82.3 Family history of stroke; Z81.1 Family history of alcohol abuse and dependence; Z80.8 Family history of malignant neoplasm of other organs or systems
CPT/HCPCS: 36415; 71045; 80053; 80061; 80307; 81001; 82140; 82607; 84439; 84443; 85025; 86592; 93005; 92522-GN; Q0163

== ENCOUNTER 2019-01-01 12:27 | Emergency (ER) | payer MEDICAID ==
[~2019-01-01] VITALS: Ht 170.2 cm; Wt 75.9 kg
[~2019-01-01 12:27] MED LIST changes: +ARIP5TAB13 PO; +DIPH50CA PO; +NICO-486 TD; +OMEP10CA5 PO; +QUET100T PO; +QUET200T PO; +TOPI25TA32 PO; +ZOLP-413 PO
[2019-01-01 12:33] VITALS: BP 113/82
--- NOTE | 2019-01-01 12:33 | NUR ---
PT BIB [facility] FOR SI- STATES THE VOICES IN HER HEAD ARE TELLING HER TO KILL HERSELF. CHANGED INTO GOWN. BELONGINGS PLACED INTO BAG AND INTO SECURE LOCKER. SITTER IN HALLWAY. ROOM SECURE.
--- NOTE | 2019-01-01 12:50 | NUR ---
PSYCH WIND TURBINE SHEET METAL WORKER AND LAB AT BEDSIDE NOW.
[2019-01-01 13:12] LABS: AMPHETAMINE SCREEN, URINE Negative (Negative); BARBITURATE SCREEN, URINE Negative (Negative); BENZODIAZEPINE SCREEN, URINE Negative (Negative); CANNABINOID SCREEN, URINE Negative (Negative); COCAINE SCREEN, URINE Negative (Negative); METHADONE SCREEN, URINE Negative (Negative); OPIATE SCREEN, URINE Negative (Negative)
[2019-01-01 13:14] LABS: MEAN CORPUSCULAR HEMOGLOBIN 29.5 pg (27.0-34.8); MEAN CORPUSCULAR HGB CONC 33.1 g/dL (32.4-35.8); MEAN CORPUSCULAR VOLUME 89.3 fL (80-100); MEAN PLATELET VOLUME 8.8 fL (7.4-10.4); PLATELET COUNT 284 x10^3/uL (130-400); RED BLOOD COUNT 4.23 x10^6/uL (3.82-5.3); RED CELL DISTRIBUTION WIDTH 16.1 % (9.6-15.2)
[2019-01-01 13:24] LABS: ALBUMIN 3.8 g/dL (3.4-5.0); ANION GAP 12 mmol/L (5-15); CALCIUM 8.9 mg/dL (8.5-10.1); CHLORIDE 109 mmol/L (98-107); CREATININE 0.85 mg/dL (0.55-1.02); SALICYLATE LEVEL 3.8 mg/dL (2.8-20.0)
--- NOTE | 2019-01-01 13:28 | NUR ---
PT PROVIDED WITH WATER.
[2019-01-01] MEDS ORDERED: QUETIAPINE 25MG TABLET PO SCH (13:30)
--- NOTE | 2019-01-01 13:33 | NUR ---
REPORT TO SIDNEY BLAKE.
--- NOTE | 2019-01-01 13:36 | NUR ---
REPORT RECEIVED FROM LATOYA LITTLE.
[2019-01-01] MEDS ORDERED: QUETIAPINE 25MG TABLET ONE (14:08)
[2019-01-01] MEDS ORDERED: GABAPENTIN 300 MG CAPSULE ONE (14:08)
--- NOTE | 2019-01-01 14:13 | NUR ---
PT MEDICATED PER EMAR. PT TOLERATED WELL.
--- NOTE | 2019-01-01 14:17 | NUR ---
SOME SNACKS PROVIDED AT THIS TIME.
--- NOTE | 2019-01-01 14:25 | NUR ---
HOLD DC PER MARINE ENGINE MACHINIST.
[2019-01-01 14:30] LABS: MD YES
[2019-01-01 14:34] LABS: <RBC MORPHOLOGY> NORMAL; BAND#(MANUAL) 0.26 x10^3/uL; BANDS%(MANUAL) 3 % (0-7); LYMPHS% (MANUAL) 33 % (22-44); MONOS#(MANUAL) 0.26 x10^3/uL (0.3-2.7); MONOS% (MANUAL) 3 % (2-9); SEG#(MANUAL) 5.37 x10^3/uL (1.8-6.8); SEGS% (MANUAL) 61 % (42-75)
[2019-01-01 14:35] LABS: <PLATELET ESTIMATE> ADEQUATE; <PLT MORPHOLOGY> NORMAL PLT MORPH
--- NOTE | 2019-01-01 14:52 | NUR ---
FAGOTING MACHINE OPERATOR OK'D TO DC THIS PT. Patient given discharge instructions and they have confirmed that they understand the instructions.
[2019-01-01] MEDS ORDERED: GABAPENTIN 300 MG CAPSULE PO SCH (16:00)
== END 2019-01-01 14:54 | disposition home or self-care (01) ==
LOC: ED 14:48
DX: F20.89 Other schizophrenia (principal); R44.0 Auditory hallucinations; I10 Essential (primary) hypertension
CPT/HCPCS: 36415; 80048; 80307; 82040; 85025; 99284

== ENCOUNTER 2019-03-23 00:05 | Emergency (ER) | payer MEDICAID ==
[~2019-03-23] VITALS: Ht 167.6 cm; Wt 93.3 kg
[~2019-03-23 00:05] MED LIST changes: +ACET325T26 PO; +ALPR1TAB2 PO; +BACL-19 PO; +DIPH25CA61 PO; +OLAN15TA3 PO; +ONDA4TAB7 PO; +ZOLP10TA PO
[2019-03-23] MEDS ORDERED: HYDROmorphone 1 MG/ML, 1ML INJ IM ONE (01:00)
[2019-03-23] MEDS ORDERED: ONDANSETRON ODT 4 MG PO ONE (01:00)
[2019-03-23] MEDS ORDERED: ONDANSETRON ODT 4 MG ONE (01:07)
[2019-03-23] MEDS ORDERED: HYDROmorphone 1 MG/ML, 1ML INJ ONE (01:08)
[2019-03-23 01:33] VITALS: BP 139/70
--- NOTE | 2019-03-23 01:35 | NUR ---
Juvenal jovel in [facility] - 03/23/19 at 0136 by MIGNON PT STATES SHE IS VERY HUNGRY AND HAS NO FOOD AT HOME. SHE SHOULD HAVE HER FOOD STAMPS SOON. PROVIDED
--- NOTE | 2019-03-23 01:36 | NUR ---
PT STATES SHE IS VERY HUNGRY AND HAS NO FOOD AT HOME. SHE SHOULD HAVE HER FOOD STAMPS SOON. PROVIDED PT WITH MEAL FROM [employer] TO TAKE HOME. TAXI VOUCHER PROVIDED. PT AMBULATED TO LA DESK WITH STEADY GAIT.
== END 2019-03-23 01:35 | disposition home or self-care (01) ==
LOC: ED 01:06
DX: M79.18 Myalgia, other site (principal); G43.919 Migraine, unspecified, intractable, without status migrainosus; M06.9 Rheumatoid arthritis, unspecified; I10 Essential (primary) hypertension
CPT/HCPCS: 93005; 96372; 99283; J1170; Q0162

== ENCOUNTER 2019-03-27 19:37 | Emergency (ER) | payer MEDICAID ==
[~2019-03-27] VITALS: Ht 170.2 cm; Wt 98.0 kg
[2019-03-27 19:47] VITALS: BP 105/71
[2019-03-27] MEDS ORDERED: ONDANSETRON 2MG/ML, 2ML IVPush ONE (20:00)
[2019-03-27] MEDS ORDERED: METHOCARBAMOL 750 MG TABLET PO ONE (20:00)
[2019-03-27] MEDS ORDERED: SODIUM CHLORIDE FLUSH 10ML SYR IVF ONE (20:00)
[2019-03-27] MEDS ORDERED: HYDROmorphone 2 MG/ML, 1ML IVPush PRN (20:00)
[2019-03-27] MEDS ORDERED: HYDROmorphone 1 MG/ML, 1ML INJ ONE (20:04)
[2019-03-27] MEDS ORDERED: METHOCARBAMOL 500 MG TABLET ONE (20:05)
[2019-03-27] MEDS ORDERED: ONDANSETRON 2MG/ML, 2ML ONE (20:05)
[2019-03-27] MEDS ORDERED: ONDANSETRON ODT 4 MG ONE (20:22)
[2019-03-27] MEDS ORDERED: ONDANSETRON ODT 4 MG PO ONE (20:30)
[2019-03-27] MEDS ORDERED: HYDROmorphone 2 MG/ML, 1ML IM ONE (20:30)
[2019-03-27 20:53] LABS: MICROSCOPIC AUTO
[2019-03-27 20:54] LABS: CULTURE INDICATED? YES
[2019-03-27] MEDS ORDERED: HYDROcodone/APAP 5/325 TABLET ONE (21:05)
[2019-03-27] MEDS ORDERED: HYDROcodone/APAP 5/325 TABLET PO ONE (21:30)
--- NOTE | 2019-03-27 21:41 | NUR ---
Patient discharge instructions given. All questions and concerns addressed. Patient ambulatory with a steady gait. Belongings with patient.
== END 2019-03-27 21:47 | disposition home or self-care (01) ==
LOC: ED 19:51
DX: M54.42 Lumbago with sciatica, left side (principal); I10 Essential (primary) hypertension
CPT/HCPCS: 72110; 81001; 87086; 96372; 99284; J1170; Q0162

== ENCOUNTER 2019-04-11 17:08 | Emergency (ER) | payer MEDICAID ==
[~2019-04-11] VITALS: Ht 170.2 cm; Wt 100.0 kg
[~2019-04-11 17:08] MED LIST changes: +SIMV20TA19 PO; -SIMV20TA3 PO; -TRAZ-137 PO; +TRAZ-175 PO
[2019-04-11 17:15] VITALS: BP 110/77
--- NOTE | 2019-04-11 17:19 | NUR ---
BIB [facility]- c/o diffuse low back pain and L hip pain. Pt states hx chronic pain, denies new injury, neuro and CMS intact. Pt positioned for comfort in bed with pillow under L hip, states this helps the pain. Continuous oxygen and BP Monitors applied, all safety measures observed.
[2019-04-11] MEDS ORDERED: PROMETHAZINE 25 MG/ML, 1ML IM ONE (17:30)
[2019-04-11] MEDS ORDERED: HYDROmorphone 1 MG/ML, 1ML INJ ONE ×2 (17:33→18:35)
[2019-04-11] MEDS ORDERED: PROMETHAZINE 25 MG/ML, 1ML ONE (17:33)
[2019-04-11] MEDS: HYDROmorphone 1 MG/ML, 1ML INJ IVPush PRN ×2 (17:42→18:41)
--- NOTE | 2019-04-11 17:42 | NUR ---
Pt medicated per MAR and positioned for comfort in bed.
[2019-04-11] MEDS ORDERED: PALI6TAB3 PO (17:47)
[2019-04-11] MEDS ORDERED: GABA600T7 PO (17:47)
--- NOTE | 2019-04-11 17:55 | NUR ---
Pt ambulatory to bathroom with steady gait to attempt to provide urine sample.
--- NOTE | 2019-04-11 18:00 | NUR ---
Pt back to bed, able to position self in bed for comfort.
--- NOTE | 2019-04-11 18:08 | NUR ---
Pt to xray via [facility].
[2019-04-11 18:13] LABS: MICROSCOPIC NOT IND
[2019-04-11 18:14] LABS: CULTURE INDICATED? NO
[2019-04-11] MEDS ORDERED: METHOCARBAMOL 750 MG TABLET ONE (18:28)
[2019-04-11] MEDS ORDERED: DIAZEPAM 5 MG TABLET ONE ×2 (18:28→19:48)
[2019-04-11] MEDS ORDERED: DIAZEPAM 5 MG TABLET PO ONE ×2 (18:30→19:30)
[2019-04-11] MEDS ORDERED: METHOCARBAMOL 750 MG TABLET PO ONE (18:30)
[2019-04-11] MEDS ORDERED: SODIUM CHLORIDE 0.9% 100 ML IV ONE (18:30)
--- NOTE | 2019-04-11 18:44 | NUR ---
Pt states pain unchanged after meds. Pt refusing Robaxin and Valium MD ordered. Pt states "I have those at home." Discussed with Dr. Aguero. Orders recieved. PT medicated per order, denies other needs.
--- NOTE | 2019-04-11 19:10 | NUR ---
Report to Chelsey LITTLE.
--- NOTE | 2019-04-11 20:05 | NUR ---
pt requesting a meal. pt informed that we do not have food in the ED. pt upset and went to charge nurse and asked for a meal. pt given same answer, no food in the ED. pt offered crackers and juice. pt refused crackers. pt ambulatory to the discharge desk with steady gait.
== END 2019-04-11 20:06 | disposition home or self-care (01) ==
LOC: ED 17:14
DX: G89.29 Other chronic pain (principal); M54.5 Low back pain; M06.9 Rheumatoid arthritis, unspecified; I10 Essential (primary) hypertension; F17.200 Nicotine dependence, unspecified, uncomplicated
CPT/HCPCS: 72110; 81003; 96372; 96374; 99284; J1170; J2550; 96376

== ENCOUNTER 2019-05-26 16:53 | Emergency (ER) | payer MEDICAID ==
[~2019-05-26] VITALS: Ht 170.2 cm; Wt 90.0 kg
[~2019-05-26 16:53] MED LIST changes: +GABA600T7 PO; +PALI6TAB3 PO
[2019-05-26] MEDS ORDERED: METHOCARBAMOL 500 MG TABLET ONE (17:22)
[2019-05-26] MEDS ORDERED: ONDANSETRON 2MG/ML, 2ML ONE (17:22)
[2019-05-26] MEDS ORDERED: HYDROmorphone 1 MG/ML, 1ML INJ ONE (17:22)
[2019-05-26] MEDS ORDERED: METHOCARBAMOL 750 MG TABLET PO ONE (17:30)
[2019-05-26] MEDS ORDERED: HYDROmorphone 2 MG/ML, 1ML IVPush ONE (17:30)
[2019-05-26] MEDS ORDERED: ONDANSETRON 2MG/ML, 2ML IVPush ONE (17:30)
[2019-05-26 17:49] VITALS: BP 122/97
--- NOTE | 2019-05-26 17:50 | NUR ---
PT RESTING IN GURNEY, STATES PAIN RELIEF AFTER MEDICATION. FRIEND AT BEDSIDE. NO NEEDS AT THIS TIME. CALL LIGHT WITHIN REACH.
--- NOTE | 2019-05-26 18:34 | NUR ---
ATTEMPTED TO DISCHARGE PT, PT REQUESTING PO PAIN MEDICINE FOR TONIGHT SHE WILL NOT BE ABLE TO GET HER MEDICATIONS FILLED FROM [facility] UNTIL TOMORROW.
== END 2019-05-26 19:49 | disposition home or self-care (01) ==
LOC: ED 19:10
DX: M51.16 Intervertebral disc disorders with radiculopathy, lumbar region (principal); M47.26 Other spondylosis with radiculopathy, lumbar region; G89.29 Other chronic pain; I10 Essential (primary) hypertension; M79.7 Fibromyalgia; M06.9 Rheumatoid arthritis, unspecified; Z98.51 Tubal ligation status; Z90.5 Acquired absence of kidney
CPT/HCPCS: 96374; 96375; 99284; J1170; J2405

== ENCOUNTER 2019-07-06 15:01 | Emergency (ER) | payer MEDICAID ==
[~2019-07-06] VITALS: Ht 170.2 cm; Wt 93.0 kg
--- NOTE | 2019-07-06 15:25 | NUR ---
PT AMB TO BR AND BACK TO ROOM WITH STEADY GAIT. URINE COLLECTED.
--- NOTE | 2019-07-06 15:27 | NUR ---
ISELA. REPORT RECEIVED FROM EMS. SI WITH DEPRESSION AND ANXIETY ATTACK. DENIES HI. PT'S AOX4. RESPS EVEN AND UNLABORED.
--- NOTE | 2019-07-06 15:32 | NUR ---
BELONGINGS PUT INTO ONE BAG AND PUT INTO THE LOCKER AT THIS TIME.
[2019-07-06] MEDS ORDERED: BACL20TA PO (15:39)
[2019-07-06] MEDS ORDERED: ALBU6.7H8 IH (15:39)
[2019-07-06] MEDS ORDERED: ALPR0.5T7 PO (15:40)
[2019-07-06] MEDS ORDERED: HALO5TAB5 PO (15:40)
[2019-07-06 15:44] LABS: BASOPHILS # (AUTO) 0.04 x10^3/uL (0-0.1); BASOPHILS % (AUTO) 1 % (0-1); EOSINOPHILS # (AUTO) 0.07 x10^3/uL (0-0.4); EOSINOPHILS % (AUTO) 1 % (1-7); LYMPHOCYTES # (AUTO) 2.79 x10^3/uL (1-3.4); LYMPHOCYTES % (AUTO) 44 % (22-44); MD NO; MEAN CORPUSCULAR HEMOGLOBIN 27.2 pg (27.0-34.8); MEAN CORPUSCULAR HGB CONC 33.1 g/dL (32.4-35.8); MEAN CORPUSCULAR VOLUME 82.2 fL (80-100); MEAN PLATELET VOLUME 9.2 fL (7.4-10.4); MONOCYTES # (AUTO) 0.23 x10^3/uL (0.2-0.8); MONOCYTES % (AUTO) 4 % (2-9); NEUTROPHILS # (AUTO) 3.19 x10^3/uL (1.8-6.8); NEUTROPHILS % (AUTO) 51 % (42-75); PLATELET COUNT 221 x10^3/uL (130-400); RED BLOOD COUNT 4.77 x10^6/uL (3.82-5.3); RED CELL DISTRIBUTION WIDTH 17.9 % (9.6-15.2)
[2019-07-06 15:50] LABS: AMPHETAMINE SCREEN, URINE Negative (Negative); BARBITURATE SCREEN, URINE Negative (Negative); BENZODIAZEPINE SCREEN, URINE Positive (Negative); CANNABINOID SCREEN, URINE Negative (Negative); COCAINE SCREEN, URINE Negative (Negative); METHADONE SCREEN, URINE Negative (Negative); OPIATE SCREEN, URINE Negative (Negative)
[2019-07-06 15:56] LABS: ALBUMIN 3.7 g/dL (3.4-5.0); ANION GAP 8 mmol/L (5-15); CALCIUM 8.6 mg/dL (8.5-10.1); CHLORIDE 113 mmol/L (98-107); SALICYLATE LEVEL 4.9 mg/dL (2.8-20.0)
[2019-07-06 15:58] LABS: CREATININE 0.78 mg/dL (0.55-1.02)
--- NOTE | 2019-07-06 16:15 | NUR ---
FURNITURE ARRANGER AT BEDSIDE TO EVALUATE AT THIS TIME.
--- NOTE | 2019-07-06 16:39 | NUR ---
ICE CHIPS GIVEN PER REQUEST AT THIS TIME.
--- NOTE | 2019-07-06 16:54 | NUR ---
HOSPITAL BED ORDERED AT THIS TIME.
--- NOTE | 2019-07-06 17:03 | NUR ---
PT AMB TO BR WITH STEADY GAIT.
--- NOTE | 2019-07-06 17:06 | NUR ---
HOSPITAL BED IN ROOM. SITTER REQUESTED AT THIS TIME.
--- NOTE | 2019-07-06 17:17 | NUR ---
PT'S SON'S NUMBER [phone] PT'S DAUGHTER'S NUMBER [phone] OR [phone]
[2019-07-06] MEDS ORDERED: TRAZODONE 50MG TABLET PO PRN (17:30)
[2019-07-06] MEDS ORDERED: HYDROXYZINE PAMOATE 50MG CAP PO PRN (17:30)
--- NOTE | 2019-07-06 17:33 | NUR ---
MEAL TRAY PROVIDED AT THIS TIME.
--- NOTE | 2019-07-06 18:34 | NUR ---
PT MEDICATED PER EMAR FOR ANXETY PER REQUEST. PT'S AOX4. RESPS EVEN AND UNLABORED.
--- NOTE | 2019-07-06 19:00 | NUR ---
REPORT GIVEN TO DIANE LITTLE.
--- NOTE | 2019-07-06 19:01 | NUR ---
Report received from SIDNEY Hammond. This RN to assume care.
[2019-07-06] MEDS ORDERED: TRAZODONE 50MG TABLET ONE (19:21)
--- NOTE | 2019-07-06 19:35 | NUR ---
Spoke with Sybli from [facility] and she states she will look into patient and see if they can accpet patient.
[2019-07-06 19:52] VITALS: BP 131/94
--- NOTE | 2019-07-06 19:56 | NUR ---
Patient states she still wants to harm herself by taking too many pills.
--- NOTE | 2019-07-06 20:03 | NUR ---
Patient accepted by Sybil from [facility].
--- NOTE | 2019-07-06 20:07 | NUR ---
Report given to SIDNEY Devine. Patient to be transferred to room 385 at 2029.
[2019-07-06] MEDS ORDERED: RISPERIDONE 2 MG TABLET PO SCH (21:00)
[2019-07-07] MEDS ORDERED: PALIPERIDONE 3 MG TAB.ER.24 PO SCH (09:00)
== END 2019-07-06 20:51 ==
LOC: ED 15:36
DX: R45.851 Suicidal ideations (principal); F41.9 Anxiety disorder, unspecified; I10 Essential (primary) hypertension; G43.909 Migraine, unspecified, not intractable, without status migrainosus; M79.7 Fibromyalgia; M06.9 Rheumatoid arthritis, unspecified; Z88.6 Allergy status to analgesic agent; Z88.8 Allergy status to other drugs, medicaments and biological substances
CPT/HCPCS: 36415; 80048; 80307; 82040; 85025; 99285

== ENCOUNTER 2019-07-06 20:10 | Inpatient (IN) | payer MEDICAID ==
[~2019-07-06] VITALS: Ht 170.2 cm; Wt 92.0 kg
[2019-07-06 19:55] VITALS: BP 136/82
[~2019-07-06 20:10] MED LIST changes: +ALBU6.7H8 IH; +ALPR0.5T7 PO; +HALO5TAB5 PO
[2019-07-06] MEDS ORDERED: ACETAMINOPHEN 325 MG TABLET PO PRN (20:30)
[2019-07-06] MEDS ORDERED: POLYETHYLENE GLYCOL 17 GM PACKET PO PRN (20:30)
[2019-07-06] MEDS ORDERED: DOCUSATE 100 MG CAPSULE PO PRN (20:30)
[2019-07-06] MEDS ORDERED: ONDANSETRON ODT 4 MG PO PRN (20:30)
[2019-07-06] MEDS ORDERED: BISACODYL 10 MG SUPP PR PRN (20:30)
[2019-07-06 21:32] VITALS: BP 136/94
[2019-07-06] MEDS: TRAZODONE 50MG TABLET PO SCH (22:10)
[2019-07-06] MEDS: PLEASE ENTER HEIGHT AND WEIGHT MC SCH (22:15)
[2019-07-06 22:29] LABS: MICROSCOPIC NOT IND
[2019-07-06 22:34] LABS: CULTURE INDICATED? NO
[2019-07-07] MEDS: PLEASE ENTER HEIGHT AND WEIGHT MC SCH ×2 (05:00→13:00)
[2019-07-07 07:35] VITALS: BP 117/83
[2019-07-07] MEDS: NICOTINE 14MG/24 HR PATCH.TD24 TD SCH (08:19)
[2019-07-07] MEDS: PALIPERIDONE 3 MG TAB.ER.24 PO SCH (08:19)
[2019-07-07] MEDS: HYDROXYZINE PAMOATE 50MG CAP PO PRN ×2 (10:09→17:43)
[2019-07-07 10:19] LABS: MEAN CORPUSCULAR HEMOGLOBIN 27.3 pg (27.0-34.8); MEAN CORPUSCULAR HGB CONC 32.9 g/dL (32.4-35.8); MEAN CORPUSCULAR VOLUME 82.9 fL (80-100); MEAN PLATELET VOLUME 9.1 fL (7.4-10.4); PLATELET COUNT 226 x10^3/uL (130-400); RED BLOOD COUNT 5.25 x10^6/uL (3.82-5.3); RED CELL DISTRIBUTION WIDTH 17.9 % (9.6-15.2)
[2019-07-07 10:24] LABS: ALBUMIN 3.8 g/dL (3.4-5.0); ANION GAP 6 mmol/L (5-15); CALCIUM 9.4 mg/dL (8.5-10.1); CHLORIDE 111 mmol/L (98-107)
[2019-07-07 10:46] LABS: MD YES
[2019-07-07 10:48] LABS: BASOS#(MANUAL) 0.05 x10^3/uL (0-0.1); BASOS% (MANUAL) 1 % (0-1); EOS#(MANUAL) 0.05 x10^3/uL (0.0-0.4); EOS% (MANUAL) 1 % (1-7); LYMPHS% (MANUAL) 46 % (22-44); MONOS#(MANUAL) 0.45 x10^3/uL (0.3-2.7); MONOS% (MANUAL) 9 % (2-9); SEG#(MANUAL) 2.15 x10^3/uL (1.8-6.8); SEGS% (MANUAL) 43 % (42-75)
[2019-07-07 10:49] LABS: <PLATELET ESTIMATE> ADEQUATE; <PLT MORPHOLOGY> NORMAL PLT MORPH; ANISOCYTOSIS 1+
[2019-07-07 10:52] LABS: ALANINE AMINOTRANSFERASE 57 U/L (12-78); ALKALINE PHOSPHATASE 120 U/L (45-117); BILIRUBIN, DIRECT 0.1 mg/dL (0.1-0.2); BILIRUBIN,INDIRECT 0.5 mg/dL (0.0-2.0); BILIRUBIN,TOTAL 0.6 mg/dL (0.2-1.0); CHOL/HDL RATIO 5.5; CHOLESTEROL, TOTAL 292 mg/dL (140-239); CREATININE 0.91 mg/dL (0.55-1.02); FREE T4 (FREE THYROXINE) 0.88 ng/dL (0.76-1.46); HDL CHOL % 18 % (28-40); HDL CHOLESTEROL (DIRECT) 53 mg/dL (40-60); LDL CHOLESTEROL,CALCULATED 172 mg/dL (54-169); LDL/HDL RATIO 3.2 (0.5-3.0); TOTAL PROTEIN 8.4 g/dL (6.4-8.2); TRIGLYCERIDES 337 mg/dL (50-200); VLDL CHOLESTEROL 67 mg/dL (0-25)
[2019-07-07] MEDS: DULOXETINE 30 MG CAPSULE.DR PO SCH (16:09)
[2019-07-07 19:52] VITALS: BP 129/94
[2019-07-07] MEDS: TRAZODONE 50MG TABLET PO SCH (20:12)
[2019-07-08] MEDS: HYDROXYZINE PAMOATE 50MG CAP PO PRN ×2 (01:37→16:44)
[2019-07-08] MEDS ORDERED: ZOLP-413 PO (05:52)
[2019-07-08 07:57] VITALS: BP 100/71
[2019-07-08] MEDS: DULOXETINE 30 MG CAPSULE.DR PO SCH (08:12)
[2019-07-08] MEDS: NICOTINE 14MG/24 HR PATCH.TD24 TD SCH (08:14)
[2019-07-08] MEDS: PALIPERIDONE 3 MG TAB.ER.24 PO SCH (08:29)
[2019-07-08 19:45] VITALS: BP 103/70
[2019-07-08] MEDS: ATORVASTATIN 40 MG TABLET PO SCH (20:27)
[2019-07-08] MEDS: TRAZODONE 100MG TABLET PO SCH (20:27)
[2019-07-09] MEDS: HYDROXYZINE PAMOATE 50MG CAP PO PRN ×3 (01:04→23:01)
[2019-07-09 07:29] VITALS: BP 109/72
[2019-07-09] MEDS: PALIPERIDONE 3 MG TAB.ER.24 PO SCH (08:46)
[2019-07-09] MEDS: DULOXETINE 30 MG CAPSULE.DR PO SCH (08:46)
[2019-07-09] MEDS: NICOTINE 14MG/24 HR PATCH.TD24 TD SCH (08:48)
[2019-07-09 19:45] VITALS: BP 113/84
[2019-07-09] MEDS: TRAZODONE 100MG TABLET PO SCH (20:12)
[2019-07-09] MEDS: ATORVASTATIN 40 MG TABLET PO SCH (20:13)
[2019-07-10 07:26] VITALS: BP 106/77
[2019-07-10] MEDS: DULOXETINE 30 MG CAPSULE.DR PO SCH (08:08)
[2019-07-10] MEDS: PALIPERIDONE 3 MG TAB.ER.24 PO SCH (08:08)
[2019-07-10] MEDS: NICOTINE 14MG/24 HR PATCH.TD24 TD SCH (08:51)
[2019-07-10 08:59] LABS: ALANINE AMINOTRANSFERASE 66 U/L (12-78); ALBUMIN 3.6 g/dL (3.4-5.0); ANION GAP 7 mmol/L (5-15); CALCIUM 9.3 mg/dL (8.5-10.1); CHLORIDE 109 mmol/L (98-107); CREATININE 0.99 mg/dL (0.55-1.02)
[2019-07-10 09:02] LABS: ALKALINE PHOSPHATASE 107 U/L (45-117); BILIRUBIN,TOTAL 0.9 mg/dL (0.2-1.0); TOTAL PROTEIN 8.1 g/dL (6.4-8.2)
[2019-07-10] MEDS ORDERED: TRAZODONE 50MG TABLET PO ONE (10:30)
[2019-07-10 19:45] VITALS: BP 116/84
[2019-07-10] MEDS: HYDROXYZINE PAMOATE 50MG CAP PO PRN (20:57)
[2019-07-10] MEDS: TRAZODONE 100MG TABLET PO SCH (20:57)
[2019-07-10] MEDS: ATORVASTATIN 40 MG TABLET PO SCH (21:00)
[2019-07-11 07:31] VITALS: BP 111/80
[2019-07-11] MEDS ORDERED: PALI3TAB11 PO (09:08)
[2019-07-11] MEDS ORDERED: HYDR50CA2 PO (09:08)
[2019-07-11] MEDS ORDERED: ATOR40TA78 PO (09:08)
[2019-07-11] MEDS ORDERED: NICO-486 TD (09:08)
[2019-07-11] MEDS ORDERED: DULO30CA2 PO (09:08)
[2019-07-11] MEDS ORDERED: TRAZ-175 PO (09:08)
[2019-07-11] MEDS: PALIPERIDONE 3 MG TAB.ER.24 PO SCH (10:00)
[2019-07-11] MEDS: DULOXETINE 30 MG CAPSULE.DR PO SCH (10:00)
[2019-07-11] MEDS: NICOTINE 14MG/24 HR PATCH.TD24 TD SCH (10:02)
== END 2019-07-11 11:20 | disposition home or self-care (01) | DRG 750 ==
LOC: 3E 20:56
PROVIDERS: ADMIT Psychiatry & Neurology Psychosomatic Medicine; ATTEND Psychiatry & Neurology Psychosomatic Medicine
DX: F25.0 Schizoaffective disorder, bipolar type (principal); R45.851 Suicidal ideations; E66.9 Obesity, unspecified; G47.00 Insomnia, unspecified; G43.909 Migraine, unspecified, not intractable, without status migrainosus; K21.9 Gastro-esophageal reflux disease without esophagitis; I10 Essential (primary) hypertension; G89.29 Other chronic pain; F41.9 Anxiety disorder, unspecified; F10.21 Alcohol dependence, in remission; F17.200 Nicotine dependence, unspecified, uncomplicated; K59.00 Constipation, unspecified; E78.5 Hyperlipidemia, unspecified; Z79.899 Other long term (current) drug therapy; Z90.5 Acquired absence of kidney; Z82.0 Family history of epilepsy and other diseases of the nervous system; Z80.0 Family history of malignant neoplasm of digestive organs; Z98.51 Tubal ligation status; Z88.0 Allergy status to penicillin; Z88.6 Allergy status to analgesic agent; Z88.5 Allergy status to narcotic agent; Z88.8 Allergy status to other drugs, medicaments and biological substances; Z71.6 Tobacco abuse counseling; Z68.31 Body mass index [BMI] 31.0-31.9, adult
CPT/HCPCS: 36415; 71045; 80048; 80053; 80061; 80076; 80307; 81003; 82040; 82607; 83036; 84439; 84443; 85025; 93005; 99285

== ENCOUNTER 2019-08-21 15:04 | Emergency (ER) | payer MEDICAID ==
[~2019-08-21] VITALS: Ht 170.2 cm; Wt 70.0 kg
[~2019-08-21 15:04] MED LIST changes: +ATOR40TA78 PO; +DULO30CA2 PO; +PALI3TAB11 PO
[2019-08-21 15:11] VITALS: BP 154/92
--- NOTE | 2019-08-21 15:51 | NUR ---
Pt here for suicidal ideation bib ems from [facility]. Pt has been having more frequent falls. Pt reports she has alot of life stressors and is causing her to want to go to sleep. Pt reports that she will take a bottle of tylenol and alcohol [place] and go to sleep forever. PEGGY sent to lab, pt placed in safe room.
--- NOTE | 2019-08-21 16:04 | NUR ---
Emmie THAO placed pt on legal hold and pt to go to [facility] [place].
[2019-08-21 16:07] LABS: BASOPHILS # (AUTO) 0.04 x10^3/uL (0-0.1); BASOPHILS % (AUTO) 1 % (0-1); EOSINOPHILS # (AUTO) 0.09 x10^3/uL (0-0.4); EOSINOPHILS % (AUTO) 1 % (1-7); LYMPHOCYTES # (AUTO) 2.61 x10^3/uL (1-3.4); LYMPHOCYTES % (AUTO) 39 % (22-44); MD NO; MEAN CORPUSCULAR HEMOGLOBIN 27.1 pg (27.0-34.8); MEAN CORPUSCULAR HGB CONC 32.5 g/dL (32.4-35.8); MEAN CORPUSCULAR VOLUME 83.5 fL (80-100); MEAN PLATELET VOLUME 8.9 fL (7.4-10.4); MONOCYTES # (AUTO) 0.38 x10^3/uL (0.2-0.8); MONOCYTES % (AUTO) 6 % (2-9); NEUTROPHILS # (AUTO) 3.61 x10^3/uL (1.8-6.8); NEUTROPHILS % (AUTO) 54 % (42-75); PLATELET COUNT 260 x10^3/uL (130-400); RED BLOOD COUNT 4.77 x10^6/uL (3.82-5.3); RED CELL DISTRIBUTION WIDTH 17.3 % (9.6-15.2)
[2019-08-21 16:17] LABS: ALANINE AMINOTRANSFERASE 65 U/L (12-78); ALBUMIN 3.6 g/dL (3.4-5.0); ANION GAP 7 mmol/L (5-15); CHLORIDE 106 mmol/L (98-107); CREATININE 0.98 mg/dL (0.55-1.02); SALICYLATE LEVEL 4.6 mg/dL (2.8-20.0)
[2019-08-21 16:17] LABS: AMPHETAMINE SCREEN, URINE Negative (Negative); BARBITURATE SCREEN, URINE Negative (Negative); BENZODIAZEPINE SCREEN, URINE Positive (Negative); CANNABINOID SCREEN, URINE Negative (Negative); COCAINE SCREEN, URINE Negative (Negative); METHADONE SCREEN, URINE Negative (Negative); OPIATE SCREEN, URINE Negative (Negative)
[2019-08-21 16:28] LABS: ALKALINE PHOSPHATASE 132 U/L (45-117); BILIRUBIN,TOTAL 0.4 mg/dL (0.2-1.0); TOTAL PROTEIN 7.9 g/dL (6.4-8.2)
[2019-08-21] MEDS ORDERED: ACETAMINOPHEN 500 MG TABLET ONE (16:56)
--- NOTE | 2019-08-21 16:58 | NUR ---
Refused tylenol becasue she had some at home and on the ambulance. She would like a tramadol instead.
[2019-08-21] MEDS ORDERED: ACETAMINOPHEN 500 MG TABLET PO ONE (17:00)
--- NOTE | 2019-08-21 17:17 | NUR ---
PACKET FAXED TO [facility] PER [facility] REQUEST.
== END 2019-08-21 18:13 ==
LOC: ED 16:37
DX: F33.9 Major depressive disorder, recurrent, unspecified (principal); T14.91XA Suicide attempt, initial encounter; I10 Essential (primary) hypertension; G89.29 Other chronic pain; X83.8XXA Intentional self-harm by other specified means, initial encounter; Y93.89 Activity, other specified; Y92.89 Other specified places as the place of occurrence of the external cause; Y99.8 Other external cause status
CPT/HCPCS: 36415; 80053; 80307; 84443; 85025; 99285

== ENCOUNTER 2019-08-21 16:19 | Inpatient (IN) | payer MEDICAID ==
[~2019-08-21] VITALS: Ht 165.1 cm; Wt 94.8 kg
[~2019-08-21 16:19] MED LIST changes: +MULT-449 PO; -MULT1TAB60 PO
[2019-08-21 16:55] LABS: MICROSCOPIC NOT IND
[2019-08-21] MEDS ORDERED: DOCUSATE 100 MG CAPSULE PO PRN (17:00)
[2019-08-21] MEDS ORDERED: POLYETHYLENE GLYCOL 17 GM PACKET PO PRN (17:00)
[2019-08-21] MEDS ORDERED: ACETAMINOPHEN 325 MG TABLET PO PRN (17:00)
[2019-08-21] MEDS ORDERED: ONDANSETRON ODT 4 MG PO PRN (17:00)
[2019-08-21] MEDS ORDERED: BISACODYL 10 MG SUPP PR PRN (17:00)
[2019-08-21] MEDS ORDERED: PLEASE ENTER HEIGHT AND WEIGHT MC SCH (18:30)
[2019-08-21] MEDS ORDERED: HYDROXYZINE PAMOATE 50MG CAP PO PRN (18:30)
[2019-08-21 19:56] VITALS: BP 121/86
[2019-08-21] MEDS ORDERED: NICOTINE 14MG/24 HR PATCH.TD24 ONE (20:25)
[2019-08-21] MEDS: ATORVASTATIN 40 MG TABLET PO SCH (20:29)
[2019-08-21] MEDS: NICOTINE 14MG/24 HR PATCH.TD24 TD SCH (20:29)
[2019-08-21] MEDS: TRAZODONE 100MG TABLET PO SCH (20:29)
[2019-08-21 21:56] VITALS: BP 142/98
[2019-08-22 06:24] LABS: CHOL/HDL RATIO 7.1; CHOLESTEROL, TOTAL 290 mg/dL (140-239); FREE T4 (FREE THYROXINE) 1.01 ng/dL (0.76-1.46); HDL CHOL % 14 % (28-40); HDL CHOLESTEROL (DIRECT) 41 mg/dL (40-60); TRIGLYCERIDES 477 mg/dL (50-200)
[2019-08-22 07:00] VITALS: BP 119/82
[2019-08-22] MEDS ORDERED: NICOTINE 14MG/24 HR PATCH.TD24 TD SCH (09:00)
[2019-08-22] MEDS: DULOXETINE 30 MG CAPSULE.DR PO SCH (09:37)
[2019-08-22] MEDS: PALIPERIDONE 3 MG TAB.ER.24 PO SCH (09:37)
[2019-08-22] MEDS ORDERED: BACLOFEN 10 MG TABLET PO PRN (11:00)
--- NOTE | 2019-08-22 12:59 | NUR ---
Recommend return to previous living situation with continued support for IADLS. Addendum: 08/22/19 at 1259 by Antonietta KOWALSKI Amended: Links added.
[2019-08-22] MEDS: BACLOFEN 10 MG TABLET PO PRN (15:30)
[2019-08-22 20:00] VITALS: BP 149/99
[2019-08-22] MEDS: NICOTINE 14MG/24 HR PATCH.TD24 TD SCH (20:15)
[2019-08-22] MEDS: ATORVASTATIN 40 MG TABLET PO SCH (20:15)
[2019-08-22] MEDS: TRAZODONE 100MG TABLET PO SCH (20:15)
[2019-08-23 07:00] VITALS: BP 130/84
[2019-08-23] MEDS: PALIPERIDONE 3 MG TAB.ER.24 PO SCH (08:28)
[2019-08-23] MEDS: DULOXETINE 30 MG CAPSULE.DR PO SCH (08:28)
[2019-08-23] MEDS: NICOTINE 14MG/24 HR PATCH.TD24 TD SCH (09:19)
[2019-08-23] MEDS: ALPRazolam 1MG TAB PO PRN (17:47)
[2019-08-23 19:30] VITALS: BP 122/92
[2019-08-23] MEDS: TRAZODONE 100MG TABLET PO SCH (20:13)
[2019-08-23] MEDS: BACLOFEN 10 MG TABLET PO PRN (20:13)
[2019-08-23] MEDS: ATORVASTATIN 40 MG TABLET PO SCH (20:13)
[2019-08-24] MEDS: ALPRazolam 1MG TAB PO PRN ×2 (05:24→13:32)
[2019-08-24] MEDS: BACLOFEN 10 MG TABLET PO PRN ×2 (05:24→13:32)
[2019-08-24 05:54] LABS: ANION GAP 7 mmol/L (5-15); CALCIUM 9.1 mg/dL (8.5-10.1); CHLORIDE 105 mmol/L (98-107); CREATININE 0.98 mg/dL (0.55-1.02)
[2019-08-24 07:48] VITALS: BP 116/80
[2019-08-24] MEDS: DULOXETINE 30 MG CAPSULE.DR PO SCH (08:53)
[2019-08-24] MEDS: PALIPERIDONE 3 MG TAB.ER.24 PO SCH (08:53)
[2019-08-24] MEDS ORDERED: NICO-486 TD (15:41)
[2019-08-24 20:00] VITALS: BP 113/83
[2019-08-24] MEDS: TRAZODONE 100MG TABLET PO SCH (20:06)
[2019-08-24] MEDS: ATORVASTATIN 40 MG TABLET PO SCH (20:07)
[2019-08-24] MEDS: NICOTINE 14MG/24 HR PATCH.TD24 TD SCH (20:08)
[2019-08-25] MEDS: BACLOFEN 10 MG TABLET PO PRN (05:29)
[2019-08-25] MEDS: ALPRazolam 1MG TAB PO PRN (05:29)
[2019-08-25 07:20] VITALS: BP 108/76
[2019-08-25] MEDS: PALIPERIDONE 3 MG TAB.ER.24 PO SCH (08:35)
[2019-08-25] MEDS: DULOXETINE 30 MG CAPSULE.DR PO SCH (08:35)
== END 2019-08-25 09:35 | disposition home or self-care (01) | DRG 750 ==
LOC: 3E 18:19
PROVIDERS: ADMIT Psychiatry & Neurology Psychosomatic Medicine; ATTEND Psychiatry & Neurology Psychosomatic Medicine
DX: F25.0 Schizoaffective disorder, bipolar type (principal); E78.5 Hyperlipidemia, unspecified; G47.00 Insomnia, unspecified; G89.29 Other chronic pain; M79.7 Fibromyalgia; K21.9 Gastro-esophageal reflux disease without esophagitis; F41.1 Generalized anxiety disorder; F17.200 Nicotine dependence, unspecified, uncomplicated; I10 Essential (primary) hypertension; F10.21 Alcohol dependence, in remission; G43.909 Migraine, unspecified, not intractable, without status migrainosus; Z88.0 Allergy status to penicillin; Z88.5 Allergy status to narcotic agent; Z88.6 Allergy status to analgesic agent; Z88.8 Allergy status to other drugs, medicaments and biological substances; Z82.3 Family history of stroke; Z81.1 Family history of alcohol abuse and dependence; Z81.8 Family history of other mental and behavioral disorders; Z80.8 Family history of malignant neoplasm of other organs or systems
CPT/HCPCS: 36415; 80048; 80053; 80061; 80307; 81003; 84439; 84443; 85025; 93005; 99285; 92523-GN

== ENCOUNTER 2019-09-27 13:33 | Inpatient (IN) | payer MEDICAID ==
[~2019-09-27] VITALS: Ht 167.6 cm; Wt 95.2 kg
[2019-09-27] MEDS ORDERED: POLYETHYLENE GLYCOL 17 GM PACKET PO PRN (14:00)
[2019-09-27] MEDS ORDERED: ONDANSETRON ODT 4 MG PO PRN (14:00)
[2019-09-27] MEDS ORDERED: BISACODYL 10 MG SUPP PR PRN (14:00)
[2019-09-27] MEDS ORDERED: DOCUSATE 100 MG CAPSULE PO PRN (14:00)
[2019-09-27 15:26] VITALS: BP 135/95
[2019-09-27] MEDS ORDERED: PLEASE ENTER HEIGHT AND WEIGHT MC SCH (15:30)
[2019-09-27] MEDS ORDERED: OXYcodone/APAP 5/325MG TABLET PO PRN (16:30)
[2019-09-27] MEDS ORDERED: ALBUTEROL HFA 90 MCG/SPRAY INH PRN (17:30)
[2019-09-27] MEDS ORDERED: HYDROXYZINE PAMOATE 50MG CAP PO PRN (17:30)
[2019-09-27 19:07] LABS: HCT (SEDRATE) 39.4 % (34.6-47.8)
[2019-09-27] MEDS ORDERED: OXYcodone/APAP 5/325MG TABLET ONE (19:54)
[2019-09-27] MEDS: TRAZODONE 100MG TABLET PO SCH (20:00)
[2019-09-27] MEDS: METHOCARBAMOL 500 MG TABLET PO SCH (20:00)
[2019-09-27] MEDS: ATORVASTATIN 40 MG TABLET PO SCH (20:00)
[2019-09-27 20:19] VITALS: BP 144/103
[2019-09-27] MEDS ORDERED: DULOXETINE 30 MG CAPSULE.DR PO SCH (21:00)
[2019-09-27 21:04] VITALS: BP 127/86
[2019-09-28] MEDS: OXYcodone/APAP 5/325MG TABLET PO PRN ×2 (00:30→08:08)
[2019-09-28 05:27] LABS: ANION GAP 7 mmol/L (5-15); CALCIUM 9.4 mg/dL (8.5-10.1); CHLORIDE 112 mmol/L (98-107); CREATININE 0.91 mg/dL (0.55-1.02)
[2019-09-28 05:39] LABS: MEAN CORPUSCULAR HGB CONC 32.8 g/dL (32.4-35.8); MEAN CORPUSCULAR VOLUME 85.6 fL (80-100); MEAN PLATELET VOLUME 9.5 fL (7.4-10.4); PLATELET COUNT 214 x10^3/uL (130-400); RED BLOOD COUNT 4.73 x10^6/uL (3.82-5.3); RED CELL DISTRIBUTION WIDTH 15.3 % (9.6-15.2)
[2019-09-28 06:14] LABS: BASOPHILS # (AUTO) 0.02 x10^3/uL (0-0.1); BASOPHILS % (AUTO) 0 % (0-1); EOSINOPHILS # (AUTO) 0.08 x10^3/uL (0-0.4); EOSINOPHILS % (AUTO) 1 % (1-7); LYMPHOCYTES # (AUTO) 2.48 x10^3/uL (1-3.4); LYMPHOCYTES % (AUTO) 42 % (22-44); MD SCAN; MONOCYTES # (AUTO) 0.28 x10^3/uL (0.2-0.8); MONOCYTES % (AUTO) 5 % (2-9); NEUTROPHILS # (AUTO) 3.01 x10^3/uL (1.8-6.8); NEUTROPHILS % (AUTO) 51 % (42-75)
[2019-09-28 07:10] VITALS: BP 114/79
[2019-09-28 07:40] VITALS: BP 114/79
[2019-09-28] MEDS: NICOTINE 21 MG/24 HR PATCH.TD24 TD SCH (08:07)
[2019-09-28] MEDS: METHOCARBAMOL 500 MG TABLET PO SCH ×2 (08:08→20:15)
[2019-09-28] MEDS: PALIPERIDONE 3 MG TAB.ER.24 PO SCH (08:08)
[2019-09-28] MEDS ORDERED: DULOXETINE 30 MG CAPSULE.DR PO SCH (09:00)
[2019-09-28 09:40] LABS: MICROSCOPIC AUTO
[2019-09-28] MEDS ORDERED: ALPRazolam 1MG TAB ONE (15:36)
[2019-09-28] MEDS ORDERED: METH750T87 PO (16:01)
[2019-09-28] MEDS ORDERED: LORA10TA41 PO (16:01)
[2019-09-28] MEDS ORDERED: ALPR1TAB10 SL (16:01)
[2019-09-28 20:00] VITALS: BP 131/91
[2019-09-28] MEDS: TRAZODONE 100MG TABLET PO SCH (20:15)
[2019-09-28] MEDS: ATORVASTATIN 40 MG TABLET PO SCH (20:15)
[2019-09-29 06:30] VITALS: BP 115/77
[2019-09-29] MEDS: NICOTINE 21 MG/24 HR PATCH.TD24 TD SCH (08:14)
[2019-09-29] MEDS: PALIPERIDONE 3 MG TAB.ER.24 PO SCH (08:15)
[2019-09-29] MEDS: DULOXETINE 30 MG CAPSULE.DR PO SCH (08:15)
[2019-09-29] MEDS: METHOCARBAMOL 500 MG TABLET PO SCH ×2 (08:15→20:01)
[2019-09-29] MEDS: ACETAMINOPHEN 325 MG TABLET PO PRN ×3 (11:08→20:01)
[2019-09-29 19:46] VITALS: BP 98/79
[2019-09-29] MEDS: ATORVASTATIN 40 MG TABLET PO SCH (20:01)
[2019-09-29] MEDS: TRAZODONE 100MG TABLET PO SCH (20:01)
[2019-09-30 07:38] VITALS: BP 82/56
[2019-09-30] MEDS: DULOXETINE 30 MG CAPSULE.DR PO SCH (08:14)
[2019-09-30] MEDS: PALIPERIDONE 3 MG TAB.ER.24 PO SCH (08:14)
[2019-09-30] MEDS: METHOCARBAMOL 500 MG TABLET PO SCH ×2 (08:14→20:07)
[2019-09-30 08:46] VITALS: BP 97/65
[2019-09-30] MEDS: NICOTINE 21 MG/24 HR PATCH.TD24 TD SCH (09:00)
[2019-09-30 10:13] VITALS: BP 101/72
[2019-09-30] MEDS: ACETAMINOPHEN 325 MG TABLET PO PRN ×2 (10:21→16:39)
[2019-09-30] MEDS ORDERED: DULO30CA2 PO (15:43)
[2019-09-30 19:03] VITALS: BP 105/74
[2019-09-30] MEDS: TRAZODONE 100MG TABLET PO SCH (20:07)
[2019-09-30] MEDS: ATORVASTATIN 40 MG TABLET PO SCH (20:07)
[2019-10-01] MEDS: ACETAMINOPHEN 325 MG TABLET PO PRN (03:26)
[2019-10-01 07:00] VITALS: BP 102/69
[2019-10-01] MEDS: PALIPERIDONE 3 MG TAB.ER.24 PO SCH (08:39)
[2019-10-01] MEDS: DULOXETINE 30 MG CAPSULE.DR PO SCH (08:39)
[2019-10-01] MEDS: METHOCARBAMOL 500 MG TABLET PO SCH (08:40)
== END 2019-10-01 09:00 | disposition home or self-care (01) | DRG 750 ==
LOC: 3E 15:02
PROVIDERS: ADMIT Psychiatry & Neurology Psychosomatic Medicine; ATTEND Psychiatry & Neurology Psychosomatic Medicine
DX: F25.0 Schizoaffective disorder, bipolar type (principal); F41.1 Generalized anxiety disorder; G47.00 Insomnia, unspecified; G89.29 Other chronic pain; F17.210 Nicotine dependence, cigarettes, uncomplicated; E78.5 Hyperlipidemia, unspecified; I50.30 Unspecified diastolic (congestive) heart failure; M06.9 Rheumatoid arthritis, unspecified; R45.851 Suicidal ideations; Z79.899 Other long term (current) drug therapy; Z82.0 Family history of epilepsy and other diseases of the nervous system; Z86.19 Personal history of other infectious and parasitic diseases; Z90.5 Acquired absence of kidney; Z88.2 Allergy status to sulfonamides; Z88.1 Allergy status to other antibiotic agents; Z88.0 Allergy status to penicillin
CPT/HCPCS: 36415; 71045; 72131; 80048; 81001; 85025; 85651; 87086; 93005

== ENCOUNTER 2019-10-27 13:25 | Emergency (ER) | payer MEDICAID ==
[~2019-10-27] VITALS: Ht 170.2 cm; Wt 100.0 kg
[~2019-10-27 13:25] MED LIST changes: +ALPR1TAB10 SL; +LORA10TA41 PO; +METH750T87 PO
[2019-10-27 13:37] VITALS: BP 124/93
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
--- NOTE | 2019-10-27 14:00 | NUR ---
RECEIVED REPORT FROM SIDNEY CROSS. PT RESTING ON GURNEY. TEARFUL. STATES "M BRAIN IT'S NOT FUNCTIONING". DENIES HEARING VOICES/SEEING THINGS. PT DENIES HI. STATES SI W/ PLAN TO "TAKE A WHOLE BOTTLE OF BENADRYL AND ALCOHOL". P COOPERATIVE. PERSONAL BELONGINGS BAG (1 OF 1) PLACED IN SECURE LOCKER. ROOM SECURE. SITTER AT BEDSIDE.
--- NOTE | 2019-10-27 14:05 | NUR ---
UA COLLECTED, LABELED, AND WALKED TO LAB.
[2019-10-27 14:23] LABS: MICROSCOPIC NOT IND
[2019-10-27 14:34] LABS: AMPHETAMINE SCREEN, URINE Negative (Negative); BARBITURATE SCREEN, URINE Negative (Negative); BENZODIAZEPINE SCREEN, URINE Positive (Negative); CANNABINOID SCREEN, URINE Negative (Negative); COCAINE SCREEN, URINE Negative (Negative); METHADONE SCREEN, URINE Negative (Negative); OPIATE SCREEN, URINE Negative (Negative)
[2019-10-27 14:36] LABS: BASOPHILS # (AUTO) 0.02 x10^3/uL (0-0.1); BASOPHILS % (AUTO) 0 % (0-1); EOSINOPHILS # (AUTO) 0.04 x10^3/uL (0-0.4); EOSINOPHILS % (AUTO) 1 % (1-7); LYMPHOCYTES # (AUTO) 2.69 x10^3/uL (1-3.4); LYMPHOCYTES % (AUTO) 37 % (22-44); MD NO; MEAN CORPUSCULAR HEMOGLOBIN 28.3 pg (27.0-34.8); MEAN CORPUSCULAR HGB CONC 32.6 g/dL (32.4-35.8); MEAN CORPUSCULAR VOLUME 86.8 fL (80-100); MEAN PLATELET VOLUME 9.1 fL (7.4-10.4); MONOCYTES # (AUTO) 0.32 x10^3/uL (0.2-0.8); MONOCYTES % (AUTO) 4 % (2-9); NEUTROPHILS # (AUTO) 4.22 x10^3/uL (1.8-6.8); NEUTROPHILS % (AUTO) 58 % (42-75); PLATELET COUNT 198 x10^3/uL (130-400); RED BLOOD COUNT 4.81 x10^6/uL (3.82-5.3); RED CELL DISTRIBUTION WIDTH 15.1 % (9.6-15.2)
[2019-10-27 14:38] LABS: ALANINE AMINOTRANSFERASE 51 U/L (12-78); ALBUMIN 3.9 g/dL (3.4-5.0); ANION GAP 6 mmol/L (5-15); CALCIUM 8.6 mg/dL (8.5-10.1); CHLORIDE 112 mmol/L (98-107)
[2019-10-27 14:49] LABS: ALKALINE PHOSPHATASE 108 U/L (45-117); BILIRUBIN,TOTAL 0.6 mg/dL (0.2-1.0); CREATININE 0.95 mg/dL (0.55-1.02); SALICYLATE LEVEL 7.1 mg/dL (2.8-20.0); TOTAL PROTEIN 7.9 g/dL (6.4-8.2)
--- NOTE | 2019-10-27 15:38 | NUR ---
PT PROVIDED W/ SI LUNCH TRAY.
--- NOTE | 2019-10-27 15:57 | NUR ---
REPORT GIVEN TO ALEX, KATE RN. ALL QUESTIONS ANSWERED. PT TO BE TRANSPORTED AT 1630.
== END 2019-10-27 18:18 ==
LOC: ED 14:01
DX: F33.9 Major depressive disorder, recurrent, unspecified (principal); R45.851 Suicidal ideations; I10 Essential (primary) hypertension; M19.90 Unspecified osteoarthritis, unspecified site; G43.909 Migraine, unspecified, not intractable, without status migrainosus; F17.200 Nicotine dependence, unspecified, uncomplicated; Z90.5 Acquired absence of kidney; Z98.51 Tubal ligation status
CPT/HCPCS: 36415; 80053; 80307; 81003; 84443; 85025; 99285

== ENCOUNTER 2019-10-27 15:52 | Inpatient (IN) | payer MEDICAID ==
[~2019-10-27] VITALS: Ht 165.1 cm; Wt 100.7 kg
[2019-10-27] MEDS ORDERED: POLYETHYLENE GLYCOL 17 GM PACKET PO PRN (16:30)
[2019-10-27] MEDS ORDERED: BISACODYL 10 MG SUPP PR PRN (16:30)
[2019-10-27] MEDS ORDERED: DOCUSATE 100 MG CAPSULE PO PRN (16:30)
[2019-10-27 17:30] VITALS: BP 140/101
[2019-10-27 18:55] VITALS: BP 159/116
[2019-10-27] MEDS: TRAZODONE 100MG TABLET PO PRN (20:34)
[2019-10-28 05:53] LABS: CHOL/HDL RATIO 4.9; LDL/HDL RATIO 2.8 (0.5-3.0)
[2019-10-28 07:30] VITALS: BP 125/84
[2019-10-28] MEDS: PALIPERIDONE 3 MG TAB.ER.24 PO SCH (08:21)
[2019-10-28] MEDS: LORATADINE 10 MG TABLET PO SCH (08:22)
[2019-10-28] MEDS: ACETAMINOPHEN 325 MG TABLET PO PRN ×3 (08:28→20:05)
[2019-10-28] MEDS ORDERED: NICOTINE 14MG/24 HR PATCH.TD24 TD ONE (14:00)
[2019-10-28] MEDS: DULOXETINE 30 MG CAPSULE.DR PO SCH (16:39)
[2019-10-28 18:39] VITALS: BP 151/106
[2019-10-28] MEDS: TRAZODONE 100MG TABLET PO PRN (20:05)
[2019-10-29] MEDS: ACETAMINOPHEN 325 MG TABLET PO PRN ×3 (06:23→20:24)
[2019-10-29 07:38] VITALS: BP 135/97
[2019-10-29] MEDS: LORATADINE 10 MG TABLET PO SCH ×2 (08:32→08:36)
[2019-10-29] MEDS: PALIPERIDONE 3 MG TAB.ER.24 PO SCH (08:32)
[2019-10-29] MEDS: DULOXETINE 30 MG CAPSULE.DR PO SCH (08:33)
[2019-10-29] MEDS: NICOTINE 14MG/24 HR PATCH.TD24 TD SCH (08:34)
[2019-10-29 20:01] VITALS: BP 136/98
[2019-10-29] MEDS: TRAZODONE 100MG TABLET PO PRN (20:24)
[2019-10-30] MEDS: DULOXETINE 30 MG CAPSULE.DR PO SCH (08:35)
[2019-10-30] MEDS: PALIPERIDONE 3 MG TAB.ER.24 PO SCH (08:35)
[2019-10-30] MEDS ORDERED: ALPRazolam 1MG TAB ONE ×2 (08:37→13:07)
[2019-10-30] MEDS: NICOTINE 14MG/24 HR PATCH.TD24 TD SCH ×2 (08:40→10:10)
[2019-10-30] MEDS: LORATADINE 10 MG TABLET PO SCH (08:40)
[2019-10-30] MEDS: ACETAMINOPHEN 325 MG TABLET PO PRN ×2 (10:12→13:11)
[2019-10-30 12:27] VITALS: BP 134/95
== END 2019-10-30 13:17 | disposition home or self-care (01) | DRG 750 ==
LOC: 3E 16:53
PROVIDERS: ADMIT Psychiatry & Neurology Psychosomatic Medicine; ATTEND Psychiatry & Neurology Psychosomatic Medicine
DX: F25.0 Schizoaffective disorder, bipolar type (principal); R45.851 Suicidal ideations; Z79.899 Other long term (current) drug therapy; M06.9 Rheumatoid arthritis, unspecified; Z80.0 Family history of malignant neoplasm of digestive organs; K21.9 Gastro-esophageal reflux disease without esophagitis; I50.9 Heart failure, unspecified; Z82.0 Family history of epilepsy and other diseases of the nervous system; I11.0 Hypertensive heart disease with heart failure; Z90.5 Acquired absence of kidney; G89.4 Chronic pain syndrome; Z91.5 Personal history of self-harm; G47.00 Insomnia, unspecified; F41.1 Generalized anxiety disorder; F17.210 Nicotine dependence, cigarettes, uncomplicated; E78.5 Hyperlipidemia, unspecified; E66.9 Obesity, unspecified; Z88.6 Allergy status to analgesic agent; Z88.8 Allergy status to other drugs, medicaments and biological substances
CPT/HCPCS: 36415; 80061; 93005